=== PATIENT | female | born 1990 | race Caucasian/White ===

== ENCOUNTER → 2021-01-09 08:13 | Outpatient (CLI) | payer OTHER, SELFPAY ==
[2021-01-09 11:19] LABS: COVID19 -Nasal RAPID Negative (Negative)
== END ==
PROVIDERS: PCP Registered Nurse; Visit Provider Nurse Practitioner Family
DX: Z20.822 Contact with and (suspected) exposure to COVID-19 (principal); R09.89 Other specified symptoms and signs involving the circulatory and respiratory systems; R52 Pain, unspecified
CPT/HCPCS: 87635

== ENCOUNTER → 2021-05-08 09:04 | Outpatient (CLI) | payer OTHER, SELFPAY ==
--- NOTE | 2021-05-08 | DI.US.S_ITS ---
PROCEDURE: US OB >= 14 WEEKS FETUS INDICATIONS: COMPLETE ANATOMY SCANS OUTSIDE/PRIOR DATING DATA: Last menstrual period (LMP): 12/13/2020. LMP-based estimated date of delivery (GITA): 09/19/2021. First dating scan (date and location): 05/08/2021. Estimated date of delivery (GITA) from first dating scan: 09/18/2021. The calculations are made using the study generated GITA of 09/18/2021. TECHNIQUE: Real-time scanning was performed of the fetus, with image documentation and biometric measurements. Endovaginal scanning: Not indicated. COMPARISON: None. FINDINGS: General: A single living intrauterine gestation is present. Presentation: Vertex. Placenta: Placental position is posterior, without previa. Amniotic fluid index: 12.4 cm, normal range is 5-24 cm. Single deepest vertical pocket is 4 cm. heart rate: 157 beats per minute. Maternal cervical canal: 3.5 cm long. Normal lower limit is 2.5 cm. biometrics: Biparietal diameter: 5.0 cm, 21 weeks, 0 days. Head circumference: 18.6 cm, 21 weeks, 0 day. Abdominal circumference: 16.0 cm, 21 weeks, 1 day. Femur length: 3.4 cm, 20 weeks, 5 days Clinically estimated gestational age: Not applicable Composite gestational age from present scan: 21 weeks, 0 day. Estimated weight and percentile: 388 grams, 49 percent. Anatomic survey: Neuro: Ventricles are non-dilated at less than 10 mm. Cisterna magna is normal at 3-11 mm. Cerebellum is normal in size and morphology. Nuchal skin fold: Normal at less than 6 mm between 14-21 weeks gestational age. Face: Nose and lips, facial profile are normal. Spine: No evidence for spina bifida. Heart: 4-chambered heart is present, with normal ventricular outflow tracts. Diaphragm: Diaphragm is intact. Stomach: Left-sided stomach is present. Kidneys: No hydronephrosis. Normal is less than 5 mm in 2nd trimester, less than 7 mm in 3rd trimester. Cord: 3-vessel cord has orthotopic insertion. Bladder: Normal in size. Extremities: All 4 extremities identified. IMPRESSION: 1. Single live intrauterine with fetus in vertex presentation. heart rate is 157 beats per minute. Normal amount of amniotic fluid. Estimated weight is at 49th percentile. 2. Normal anatomic survey. We strive to produce accurate, complete, and clear reports of imaging services. To assist us in improving patient care, this report was composed using standard report templates and voice recognition software. Therefore, it may contain abnormal punctuation, insertions and/or omissions. Occasional wrong-word or sound-alike substitutions may occur. Though we review the report and make efforts to correct it, we do recommend that the report be read carefully in proper context to recognize any text inaccuracies. Dictated by: Juan Arredondo M.D. on 05/08/2021 at 10:48 Approved by: Juan Arredondo M.D. on 05/08/2021 at 11:12
== END ==
PROVIDERS: Referring Provider Nurse Practitioner Obstetrics & Gynecology; Visit Provider Nurse Practitioner Obstetrics & Gynecology
DX: Z34.92 Encounter for supervision of normal pregnancy, unspecified, second trimester (principal); Z3A.21 21 weeks gestation of pregnancy
CPT/HCPCS: 76811

== ENCOUNTER 2021-08-07 10:15 | Outpatient (RCR) | payer OTHER, SELFPAY ==
--- NOTE | 2021-05-24 09:43 | PT.OIE ---
Current Diagnoses Pain in right hip (05/24/21) Pelvic and perineal pain (05/24/21) Past Surgical History History of tonsillectomy Visit Care Team Role Provider Type Mihaela Montgomery CNM Attending Provider Advanced Data Power Consultant Family Provider Primary Care Provider Referring Provider Specialty: SOCIAL MEDIA ANALYST Address: [address] [place] [address], [address], [address] Email: [email or web address] Initial Evaluation PT-OP-A Visit Information Start: 05/24/21 08:56 Freq: Status: Active Protocol: Document 05/24/21 08:59 AMB (Rec: 05/24/21 09:52 AMB [id number]) Out-Patient Physical Therapy Visit Information Visit Information Visit Type Initial Evaluation Visit Start Time 09:00 Visit Stop Time 09:45 Total Visit Minutes 45 Visit Number 1 PT-OP-B Current Condition Start: 05/24/21 08:56 Freq: Status: Active Protocol: Document 05/24/21 08:59 AMB (Rec: 05/24/21 09:52 AMB [id number]) Current Condition History of Current Condition Onset Date 2 weeks Current Complaints R hip/groin pain History of Current Condition Celsa is due in September with her second baby, she noticed R sided hip and groin pain a couple of weeks ago. Any kind of weightbearing through the right leg hurts, getting out of bed hurts when puttin weight through the legs, not the rolling or sitting up. Weightbearing through the right leg hurts (like lifting the left leg up and weightbearing on the right leg ). Does tend to go on hikes with her 5 year old a lot, but doesn't remember a specific event where she fell or stepped wrong. Treatment Goals Patient/Caregiver Goals Take care of 5 year old without pain, go through without so much R groin pain Prior Functional Status Baseline Function- ADL's Independent Baseline Function- Mobility Independent Current Functional Impairments (Reported) Functional Limitations- ADL's Difficulty donning/doffing shoes, dressing, taking care of 5 year old, getting onto/ off of floor Personal Factors Other Personal Factors That May Effect - due in September with Therapy/Recovery second son PT-OP-C Subjective Start: 05/24/21 08:56 Freq: Status: Active Protocol: Document 05/24/21 09:00 AMB (Rec: 05/25/21 14:29 AMB [id number]) Patient Questionnaires Lower Extremity Functional Scale LEFS Score 73 LEFS Impairment 1 to 19% Impaired (Score 63-79 ) OP-PT Pain Assessment Comments Pain Comments 2-10 R groin/lateral hip PT-OP-F Manual Assessment Start: 05/24/21 08:56 Freq: Status: Active Protocol: Document 05/24/21 09:00 AMB (Rec: 05/28/21 09:42 AMB [id number]) Manual Assessments Soft Tissue Assessment Soft Tissue Mobility Assessment Tenderness over R adductor, iliopsoas and gluteals >L no real tenderness on L. Joint Mobility Assessment Joint Mobility Assessment No pain with palpation over pubic symphysis. R ASIS and medial malleolus appear long in supine. L LE distraction feels good, R is painful. PT-OP-K Range of Motion Start: 05/24/21 08:56 Freq: Status: Active Protocol: Document 05/24/21 09:00 AMB (Rec: 05/28/21 09:42 AMB [id number]) Lumbar Spine Range of Motion Lumbar Spine Active Percentage Comments overall hypermobile with full spinal flexion, extension, pt tends to push into pain to get a stretch PT-OP-L Special Tests Start: 05/24/21 08:56 Freq: Status: Active Protocol: Document 05/24/21 09:00 AMB (Rec: 05/28/21 09:42 AMB [id number]) Special Tests Hip Special Tests Scour Test Test Results + Comments painful on R with hip flexion and IR PT-OP-M Strength Start: 05/24/21 08:56 Freq: Status: Active Protocol: Document 05/24/21 09:00 AMB (Rec: 05/28/21 09:42 AMB [id number]) Hip Strength Hip Manual Muscle Testing Right Flexion (L2) 5 Normal Extension (S1) 5 Normal Abduction 4+ Good+ Left Flexion (L2) 5 Normal Extension (S1) 5 Normal Abduction 5 Normal PT-OP-Q Treatments Start: 05/24/21 08:56 Freq: Status: Active Protocol: Document 05/24/21 09:00 AMB (Rec: 05/28/21 09:42 AMB [id number]) Therapeutic Exercises Supine Exercises 1 Supine Exercise Name MET for R anterior rotation Reps/Minutes 5x3 Other Exercises 1 Other Exercise Name bird dog UE only Reps/Minutes 10 Comments contract TA and PF PT-OP-T Assessment and Plan Start: 05/24/21 08:56 Freq: Status: Active Protocol: Document 05/24/21 09:00 AMB (Rec: 05/28/21 09:42 AMB [id number]) Physical Therapy Assessment Rehab Potential Rehabilitation Potential Good Evaluation Complexity Number of Personal Factors/Comorbidities 1-2 Number of Body Systems Impaired 3 Clinical Presentation at Evaluation Stable Impairments Impairments Activity Tolerance,Functional Activities,Posture Goals Two Impairment HEP Short Term Goal (STG) Celsa will be consistent and independent with a HEP to stabilize her core. STG Duration 4 weeks One Impairment Gait Short Term Goal (STG) Celsa will walk over smooth surfaces for 15 minutes with R LE pain of 2/10 or less. STG Duration 4 weeks Rope Maker Goal (LTG) Celsa will hike for 30 minutes with R LE pain of 2/10 or less. LTG Duration 6 weeks Assessment Summary Assessment Celsa is a 30 old female who is with her second child and due in September. She attends physical therapy with a 2 week history of increasing right groin/hip/SI pain worst with weightbearing on the right leg. She has a tendency to push through this pain with stretching, even though she is quite hypermobile. Upon evaluation she was found to have SI dysfunction and poor ability to stabilize her core musculature. She was instructed to begin core stabilization and to pause on activities that load the SI unilaterally. She was instructed in body mechanics for more even weightbearing ( squatting instead of lunging, moving in and out of car with a sit to stand motion vs only loading one leg). She will benefit from further physical therapy to progress her core stabilization and provide manual therapy for her SI joint/groin musculature to reduce her pain so she can maintain her activity throughout her and continue to provide care for her young son. Physical Therapy Plan Frequency and Duration Frequency of Treatment 2x/Week Duration of Treatment 6 weeks Plan of Care Start Date 05/24/21 Plan of Care End Date 07/05/21 Therapeutic Interventions Therapeutic Interventions Aquatic Therapy,Home Exercise Program,Manual Therapy, Neuromuscular Re-education, Therapeutic Activities, Therapeutic Exercises Modalities Cold Pack/Ice Massage,Electric Stimulation,Hot Packs Next Visit Focus/Plan Next Note Type Treatment Note Next Visit Plan Follow up on HEP: R ant MET, bird dog
--- NOTE | 2021-05-24 09:43 | PT.OPPOC ---
Physical, Occupational & Speech Therapy At [facility] Current Diagnoses Pain in right hip (05/24/21) Pelvic and perineal pain (05/24/21) Visit Care Team Role Provider Type Mihaela Montgomery CNM Attending Provider Advanced Machine Helper Family Provider Primary Care Provider Referring Provider Specialty: RATE CLERK Address: [address] [place] [address], [place] [address], [place], [address] Email: [email or web address] Plan Of Care PT-OP-T Assessment and Plan Start: 05/24/21 08:56 Freq: Status: Active Protocol: Document 05/24/21 09:00 AMB (Rec: 05/28/21 09:42 AMB [id number]) Physical Therapy Assessment Rehab Potential Rehabilitation Potential Good Evaluation Complexity Number of Personal Factors/Comorbidities 1-2 Number of Body Systems Impaired 3 Clinical Presentation at Evaluation Stable Impairments Impairments Activity Tolerance,Functional Activities,Posture Goals Two Impairment HEP Short Term Goal (STG) Celsa will be consistent and independent with a HEP to stabilize her core. STG Duration 4 weeks One Impairment Gait Short Term Goal (STG) Celsa will walk over smooth surfaces for 15 minutes with R LE pain of 2/10 or less. STG Duration 4 weeks Intermediate Goal (LTG) Celsa will hike for 30 minutes with R LE pain of 2/10 or less. LTG Duration 6 weeks Assessment Summary Assessment Celsa is a 30 old female who is with her second child and due in September. She attends physical therapy with a 2 week history of increasing right groin/hip/SI pain worst with weightbearing on the right leg. She has a tendency to push through this pain with stretching, even though she is quite hypermobile. Upon evaluation she was found to have SI dysfunction and poor ability to stabilize her core musculature. She was instructed to begin core stabilization and to pause on activities that load the SI unilaterally. She was instructed in body mechanics for more even weightbearing ( squatting instead of lunging, moving in and out of car with a sit to stand motion vs only loading one leg). She will benefit from further physical therapy to progress her core stabilization and provide manual therapy for her SI joint/groin musculature to reduce her pain so she can maintain her activity throughout her and continue to provide care for her young son. Physical Therapy Plan Frequency and Duration Frequency of Treatment 2x/Week Duration of Treatment 6 weeks Plan of Care Start Date 05/24/21 Plan of Care End Date 07/05/21 Therapeutic Interventions Therapeutic Interventions Aquatic Therapy,Home Exercise Program,Manual Therapy, Neuromuscular Re-education, Therapeutic Activities, Therapeutic Exercises Modalities Cold Pack/Ice Massage,Electric Stimulation,Hot Packs Next Visit Focus/Plan Next Note Type Treatment Note Next Visit Plan Follow up on HEP: R ant MET, bird dog Plan of Care Dates Plan of Care Start Date 05/24/21 Plan of Care End Date 07/05/21 Electronically Signed by: Alize Hirsch, PT 05/28/21 0919 Please Sign and Return: I have reviewed this Plan of Care and certify that the skilled therapy services above are required to meet the patient?s needs. Physician Signature Date Printed Name and Credentials Clinical Instructor Signature Printed Name and Credentials
--- NOTE | 2021-05-29 12:40 | PT.OTN ---
Current Diagnoses Pain in right hip (05/29/21) Pelvic and perineal pain (05/29/21) Physical Therapy Treatment Note PT-OP-A Visit Information Start: 05/24/21 08:56 Freq: Status: Active Protocol: Document 05/29/21 08:15 AMB (Rec: 05/29/21 12:40 AMB [id number]) Out-Patient Physical Therapy Visit Information Visit Information Visit Type Treatment Note Visit Start Time 08:15 Visit Stop Time 09:00 Total Visit Minutes 45 Visit Number 2 PT-OP-B Current Condition Start: 05/24/21 08:56 Freq: Status: Active Protocol: Document 05/24/21 08:59 AMB (Rec: 05/24/21 09:52 AMB [id number]) Current Condition History of Current Condition Onset Date 2 weeks Current Complaints R hip/groin pain History of Current Condition Celsa is due in September with her second baby, she noticed R sided hip and groin pain a couple of weeks ago. Any kind of weightbearing through the right leg hurts, getting out of bed hurts when puttin weight through the legs, not the rolling or sitting up. Weightbearing through the right leg hurts (like lifting the left leg up and weightbearing on the right leg ). Does tend to go on hikes with her 5 year old a lot, but doesn't remember a specific event where she fell or stepped wrong. Treatment Goals Patient/Caregiver Goals Take care of 5 year old without pain, go through without so much R groin pain Prior Functional Status Baseline Function- ADL's Independent Baseline Function- Mobility Independent Current Functional Impairments (Reported) Functional Limitations- ADL's Difficulty donning/doffing shoes, dressing, taking care of 5 year old, getting onto/ off of floor Personal Factors Other Personal Factors That May Effect - due in September with Therapy/Recovery second son PT-OP-C Subjective Start: 05/24/21 08:56 Freq: Status: Active Protocol: Document 05/29/21 08:15 AMB (Rec: 05/29/21 12:40 AMB [id number]) OP-PT Subjective Patient Comments Patient Comments Celsa went on a couple of walks didn't really matter if they were short, long, hilly, or flat, the next day she woke up with pain. On days that she didn't walk she woke up and felt much better. PT-OP-F Manual Assessment Start: 05/24/21 08:56 Freq: Status: Active Protocol: Document 05/24/21 09:00 AMB (Rec: 05/28/21 09:42 AMB [id number]) Manual Assessments Soft Tissue Assessment Soft Tissue Mobility Assessment Tenderness over R adductor, iliopsoas and gluteals >L no real tenderness on L. Joint Mobility Assessment Joint Mobility Assessment No pain with palpation over pubic symphysis. R ASIS and medial malleolus appear long in supine. L LE distraction feels good, R is painful. PT-OP-K Range of Motion Start: 05/24/21 08:56 Freq: Status: Active Protocol: Document 05/24/21 09:00 AMB (Rec: 05/28/21 09:42 AMB [id number]) Lumbar Spine Range of Motion Lumbar Spine Active Percentage Comments overall hypermobile with full spinal flexion, extension, pt tends to push into pain to get a stretch PT-OP-L Special Tests Start: 05/24/21 08:56 Freq: Status: Active Protocol: Document 05/24/21 09:00 AMB (Rec: 05/28/21 09:42 AMB [id number]) Special Tests Hip Special Tests Scour Test Test Results + Comments painful on R with hip flexion and IR PT-OP-M Strength Start: 05/24/21 08:56 Freq: Status: Active Protocol: Document 05/24/21 09:00 AMB (Rec: 05/28/21 09:42 AMB [id number]) Hip Strength Hip Manual Muscle Testing Right Flexion (L2) 5 Normal Extension (S1) 5 Normal Abduction 4+ Good+ Left Flexion (L2) 5 Normal Extension (S1) 5 Normal Abduction 5 Normal PT-OP-Q Treatments Start: 05/24/21 08:56 Freq: Status: Active Protocol: Document 05/29/21 08:15 AMB (Rec: 05/29/21 12:40 AMB [id number]) Therapeutic Exercises Supine Exercises 1 Supine Exercise Name MET for R anterior rotation Reps/Minutes 5x3 Sidelying Exercises clamshell Sidelying Exercise Name cues not to rotate at lumbar spine Side bilateral Reps/Minutes 2x10 QL stretch Sidelying Exercise Name L Reps/Minutes 30x2 Standing Exercises active hamstring stretch Reps/Minutes 30x3 Other Exercises 1 Other Exercise Name bird dog UE only Reps/Minutes 10 Comments contract TA and PF Manual Therapy Treatment Soft Tissue Mobilization 1 Body Location L QL, R adductor Mobilization Type Myofascial Release Taping 1 Body Location SI-bilat Treatment Focus stabilization Type of Tape Kinesio Tape Comments star pattern PT-OP-T Assessment and Plan Start: 05/24/21 08:56 Freq: Status: Active Protocol: Document 05/29/21 08:15 AMB (Rec: 05/29/21 12:40 AMB [id number]) Physical Therapy Assessment Goals Two Impairment HEP Short Term Goal (STG) Celsa will be consistent and independent with a HEP to stabilize her core. STG Duration 4 weeks One Impairment Gait Short Term Goal (STG) Celsa will walk over smooth surfaces for 15 minutes with R LE pain of 2/10 or less. STG Duration 4 weeks Care Home Goal (LTG) Celsa will hike for 30 minutes with R LE pain of 2/10 or less. LTG Duration 6 weeks Assessment Summary Assessment Celsa tolerated exercises well . we tried an SI belt today which she felt helped but didn 't immediately take away her groin pain. Physical Therapy Plan Next Visit Focus/Plan Next Note Type Treatment Note Next Visit Plan Follow up on HEP: R ant MET, bird dog, added clamshell, QL stretch, standing hamstring stretch against wall
--- NOTE | 2021-06-02 14:48 | PT.OTN ---
Current Diagnoses Pain in right hip (06/02/21) Pelvic and perineal pain (06/02/21) Physical Therapy Treatment Note PT-OP-A Visit Information Start: 05/24/21 08:56 Freq: Status: Active Protocol: Document 06/02/21 08:15 AMB (Rec: 06/02/21 09:46 AMB [id number]) Out-Patient Physical Therapy Visit Information Visit Information Visit Type Treatment Note Visit Start Time 08:15 Visit Stop Time 09:00 Total Visit Minutes 45 Visit Number 3 PT-OP-B Current Condition Start: 05/24/21 08:56 Freq: Status: Active Protocol: Document 05/24/21 08:59 AMB (Rec: 05/24/21 09:52 AMB [id number]) Current Condition History of Current Condition Onset Date 2 weeks Current Complaints R hip/groin pain History of Current Condition Celsa is due in September with her second baby, she noticed R sided hip and groin pain a couple of weeks ago. Any kind of weightbearing through the right leg hurts, getting out of bed hurts when puttin weight through the legs, not the rolling or sitting up. Weightbearing through the right leg hurts (like lifting the left leg up and weightbearing on the right leg ). Does tend to go on hikes with her 5 year old a lot, but doesn't remember a specific event where she fell or stepped wrong. Treatment Goals Patient/Caregiver Goals Take care of 3 year old without pain, go through without so much R groin pain Prior Functional Status Baseline Function- ADL's Independent Baseline Function- Mobility Independent Current Functional Impairments (Reported) Functional Limitations- ADL's Difficulty donning/doffing shoes, dressing, taking care of 5 year old, getting onto/ off of floor Personal Factors Other Personal Factors That May Effect - due in September with Therapy/Recovery second son PT-OP-C Subjective Start: 05/24/21 08:56 Freq: Status: Active Protocol: Document 06/02/21 08:15 AMB (Rec: 06/02/21 09:46 AMB [id number]) OP-PT Subjective Patient Comments Patient Comments Pt was palpating last night and feels like the pain is right on the superior pubic ramus from her description PT-OP-F Manual Assessment Start: 05/24/21 08:56 Freq: Status: Active Protocol: Document 05/24/21 09:00 AMB (Rec: 05/28/21 09:42 AMB [id number]) Manual Assessments Soft Tissue Assessment Soft Tissue Mobility Assessment Tenderness over R adductor, iliopsoas and gluteals >L no real tenderness on L. Joint Mobility Assessment Joint Mobility Assessment No pain with palpation over pubic symphysis. R ASIS and medial malleolus appear long in supine. L LE distraction feels good, R is painful. PT-OP-K Range of Motion Start: 05/24/21 08:56 Freq: Status: Active Protocol: Document 05/24/21 09:00 AMB (Rec: 05/28/21 09:42 AMB [id number]) Lumbar Spine Range of Motion Lumbar Spine Active Percentage Comments overall hypermobile with full spinal flexion, extension, pt tends to push into pain to get a stretch PT-OP-L Special Tests Start: 05/24/21 08:56 Freq: Status: Active Protocol: Document 05/24/21 09:00 AMB (Rec: 05/28/21 09:42 AMB [id number]) Special Tests Hip Special Tests Scour Test Test Results + Comments painful on R with hip flexion and IR PT-OP-M Strength Start: 05/24/21 08:56 Freq: Status: Active Protocol: Document 05/24/21 09:00 AMB (Rec: 05/28/21 09:42 AMB [id number]) Hip Strength Hip Manual Muscle Testing Right Flexion (L2) 5 Normal Extension (S1) 5 Normal Abduction 4+ Good+ Left Flexion (L2) 5 Normal Extension (S1) 5 Normal Abduction 5 Normal PT-OP-Q Treatments Start: 05/24/21 08:56 Freq: Status: Active Protocol: Document 06/02/21 08:15 AMB (Rec: 06/02/21 14:48 AMB [id number]) Therapeutic Exercises Supine Exercises 1 Supine Exercise Name MET for R anterior rotation Reps/Minutes 5x3 Sidelying Exercises clamshell Sidelying Exercise Name cues not to rotate at lumbar spine Side bilateral Reps/Minutes 2x10 QL stretch Sidelying Exercise Name L Reps/Minutes 30x2 Sitting Exercises active adductor stretch Reps/Minutes 30x4 Manual Therapy Treatment Soft Tissue Mobilization 1 Body Location L QL, R adductor Mobilization Type Myofascial Release PT-OP-T Assessment and Plan Start: 05/24/21 08:56 Freq: Status: Active Protocol: Document 06/02/21 08:15 AMB (Rec: 06/02/21 14:48 AMB [id number]) Physical Therapy Assessment Goals Two Impairment HEP Short Term Goal (STG) Celsa will be consistent and independent with a HEP to stabilize her core. STG Duration 4 weeks One Impairment Gait Short Term Goal (STG) Celsa will walk over smooth surfaces for 15 minutes with R LE pain of 2/10 or less. STG Duration 4 weeks Business Continuity Planner Goal (LTG) Celsa will hike for 30 minutes with R LE pain of 2/10 or less. LTG Duration 6 weeks Assessment Summary Assessment Celsa was educated today on anatomy of pelvis, discussed need for inflammation reduction.Vended SI belt. Physical Therapy Plan Next Visit Focus/Plan Next Note Type Treatment Note Next Visit Plan Work on adductors
--- NOTE | 2021-06-06 16:02 | PT.OTN ---
Current Diagnoses Pain in right hip (06/06/21) Pelvic and perineal pain (06/06/21) Physical Therapy Treatment Note PT-OP-A Visit Information Start: 05/24/21 08:56 Freq: Status: Active Protocol: Document 06/06/21 08:18 AMB (Rec: 06/06/21 09:03 AMB [id number]) Out-Patient Physical Therapy Visit Information Visit Information Visit Type Treatment Note Visit Start Time 08:15 Visit Stop Time 09:00 Total Visit Minutes 45 Visit Number 4 PT-OP-B Current Condition Start: 05/24/21 08:56 Freq: Status: Active Protocol: Document 05/24/21 08:59 AMB (Rec: 05/24/21 09:52 AMB [id number]) Current Condition History of Current Condition Onset Date 2 weeks Current Complaints R hip/groin pain History of Current Condition Celsa is due in September with her second baby, she noticed R sided hip and groin pain a couple of weeks ago. Any kind of weightbearing through the right leg hurts, getting out of bed hurts when puttin weight through the legs, not the rolling or sitting up. Weightbearing through the right leg hurts (like lifting the left leg up and weightbearing on the right leg ). Does tend to go on hikes with her 5 year old a lot, but doesn't remember a specific event where she fell or stepped wrong. Treatment Goals Patient/Caregiver Goals Take care of 5 year old without pain, go through without so much R groin pain Prior Functional Status Baseline Function- ADL's Independent Baseline Function- Mobility Independent Current Functional Impairments (Reported) Functional Limitations- ADL's Difficulty donning/doffing shoes, dressing, taking care of 5 year old, getting onto/ off of floor Personal Factors Other Personal Factors That May Effect - due in September with Therapy/Recovery second son PT-OP-C Subjective Start: 05/24/21 08:56 Freq: Status: Active Protocol: Document 06/06/21 08:15 AMB (Rec: 06/07/21 16:02 AMB [id number]) OP-PT Subjective Patient Comments Patient Comments Celsa went to the pool, but was sort of wondering what exercises to do. The pool is definitely less painful than walking. But she can still feel it a bit. She did have a couple of nights where it wasn't as bad as usual. PT-OP-F Manual Assessment Start: 05/24/21 08:56 Freq: Status: Active Protocol: Document 05/24/21 09:00 AMB (Rec: 05/28/21 09:42 AMB [id number]) Manual Assessments Soft Tissue Assessment Soft Tissue Mobility Assessment Tenderness over R adductor, iliopsoas and gluteals >L no real tenderness on L. Joint Mobility Assessment Joint Mobility Assessment No pain with palpation over pubic symphysis. R ASIS and medial malleolus appear long in supine. L LE distraction feels good, R is painful. PT-OP-K Range of Motion Start: 05/24/21 08:56 Freq: Status: Active Protocol: Document 05/24/21 09:00 AMB (Rec: 05/28/21 09:42 AMB [id number]) Lumbar Spine Range of Motion Lumbar Spine Active Percentage Comments overall hypermobile with full spinal flexion, extension, pt tends to push into pain to get a stretch PT-OP-L Special Tests Start: 05/24/21 08:56 Freq: Status: Active Protocol: Document 05/24/21 09:00 AMB (Rec: 05/28/21 09:42 AMB [id number]) Special Tests Hip Special Tests Scour Test Test Results + Comments painful on R with hip flexion and IR PT-OP-M Strength Start: 05/24/21 08:56 Freq: Status: Active Protocol: Document 05/24/21 09:00 AMB (Rec: 05/28/21 09:42 AMB [id number]) Hip Strength Hip Manual Muscle Testing Right Flexion (L2) 5 Normal Extension (S1) 5 Normal Abduction 4+ Good+ Left Flexion (L2) 5 Normal Extension (S1) 5 Normal Abduction 5 Normal PT-OP-Q Treatments Start: 05/24/21 08:56 Freq: Status: Active Protocol: Document 06/06/21 08:15 AMB (Rec: 06/07/21 16:02 AMB [id number]) Therapeutic Exercises Sidelying Exercises clamshell Sidelying Exercise Name cues not to rotate at lumbar spine Side bilateral Reps/Minutes 2x10 QL stretch Sidelying Exercise Name L Reps/Minutes 30x2 Sitting Exercises roll out Resistance #3 t band Equipment Used 10 roll in Reps/Minutes 10 Comments cued TA/pelvic floor Manual Therapy Treatment Soft Tissue Mobilization 1 Body Location L QL, R adductor Mobilization Type Myofascial Release PT-OP-T Assessment and Plan Start: 05/24/21 08:56 Freq: Status: Active Protocol: Document 06/06/21 08:15 AMB (Rec: 06/07/21 16:02 AMB [id number]) Physical Therapy Assessment Goals Two Impairment HEP Short Term Goal (STG) Celsa will be consistent and independent with a HEP to stabilize her core. STG Duration 4 weeks One Impairment Gait Short Term Goal (STG) Celsa will walk over smooth surfaces for 15 minutes with R LE pain of 2/10 or less. STG Duration 4 weeks Cataract Lens Generator Goal (LTG) Celsa will hike for 30 minutes with R LE pain of 2/10 or less. LTG Duration 6 weeks Assessment Summary Assessment Continued to educate on appropriate exercise, did ok with roll in exercise, but continues to have pain with weightbearing Physical Therapy Plan Next Visit Focus/Plan Next Note Type Treatment Note Next Visit Plan Reassess pubic symphsys/SI
--- NOTE | 2021-06-09 12:42 | PT.OTN ---
Current Diagnoses Pain in right hip (06/09/21) Pelvic and perineal pain (06/09/21) Physical Therapy Treatment Note PT-OP-A Visit Information Start: 05/24/21 08:56 Freq: Status: Active Protocol: Document 06/09/21 08:15 AMB (Rec: 06/09/21 12:42 AMB [id number]) Out-Patient Physical Therapy Visit Information Visit Information Visit Type Treatment Note Visit Start Time 08:15 Visit Stop Time 09:00 Total Visit Minutes 45 Visit Number 5 PT-OP-B Current Condition Start: 05/24/21 08:56 Freq: Status: Active Protocol: Document 05/24/21 08:59 AMB (Rec: 05/24/21 09:52 AMB [id number]) Current Condition History of Current Condition Onset Date 2 weeks Current Complaints R hip/groin pain History of Current Condition Celsa is due in September with her second baby, she noticed R sided hip and groin pain a couple of weeks ago. Any kind of weightbearing through the right leg hurts, getting out of bed hurts when puttin weight through the legs, not the rolling or sitting up. Weightbearing through the right leg hurts (like lifting the left leg up and weightbearing on the right leg ). Does tend to go on hikes with her 5 year old a lot, but doesn't remember a specific event where she fell or stepped wrong. Treatment Goals Patient/Caregiver Goals Take care of 3 year old without pain, go through without so much R groin pain Prior Functional Status Baseline Function- ADL's Independent Baseline Function- Mobility Independent Current Functional Impairments (Reported) Functional Limitations- ADL's Difficulty donning/doffing shoes, dressing, taking care of 5 year old, getting onto/ off of floor Personal Factors Other Personal Factors That May Effect - due in September with Therapy/Recovery second son PT-OP-C Subjective Start: 05/24/21 08:56 Freq: Status: Active Protocol: Document 06/09/21 08:15 AMB (Rec: 06/09/21 12:42 AMB [id number]) OP-PT Subjective Patient Comments Patient Comments Celsa is concerned about pain with rolling over and moving from sit to stand. She is sore today from gardening yesterday. PT-OP-F Manual Assessment Start: 05/24/21 08:56 Freq: Status: Active Protocol: Document 05/24/21 09:00 AMB (Rec: 05/28/21 09:42 AMB [id number]) Manual Assessments Soft Tissue Assessment Soft Tissue Mobility Assessment Tenderness over R adductor, iliopsoas and gluteals >L no real tenderness on L. Joint Mobility Assessment Joint Mobility Assessment No pain with palpation over pubic symphysis. R ASIS and medial malleolus appear long in supine. L LE distraction feels good, R is painful. PT-OP-K Range of Motion Start: 05/24/21 08:56 Freq: Status: Active Protocol: Document 05/24/21 09:00 AMB (Rec: 05/28/21 09:42 AMB [id number]) Lumbar Spine Range of Motion Lumbar Spine Active Percentage Comments overall hypermobile with full spinal flexion, extension, pt tends to push into pain to get a stretch PT-OP-L Special Tests Start: 05/24/21 08:56 Freq: Status: Active Protocol: Document 05/24/21 09:00 AMB (Rec: 05/28/21 09:42 AMB [id number]) Special Tests Hip Special Tests Scour Test Test Results + Comments painful on R with hip flexion and IR PT-OP-M Strength Start: 05/24/21 08:56 Freq: Status: Active Protocol: Document 05/24/21 09:00 AMB (Rec: 05/28/21 09:42 AMB [id number]) Hip Strength Hip Manual Muscle Testing Right Flexion (L2) 5 Normal Extension (S1) 5 Normal Abduction 4+ Good+ Left Flexion (L2) 5 Normal Extension (S1) 5 Normal Abduction 5 Normal PT-OP-Q Treatments Start: 05/24/21 08:56 Freq: Status: Active Protocol: Document 06/09/21 08:15 AMB (Rec: 06/09/21 12:42 AMB [id number]) Therapeutic Exercises Supine Exercises 3 Supine Exercise Name hamstring/adductor stretch Reps/Minutes 30x2 2 Supine Exercise Name bridge Comments the bridge and roll from R to L side Manual Therapy Treatment Soft Tissue Mobilization 1 Body Location L QL, R adductor Mobilization Type Myofascial Release Joint Mobilizations 1 Joint MET for pubic symphsysis Reps/Duration x3 Manual Traction long axis Comments left PT-OP-T Assessment and Plan Start: 05/24/21 08:56 Freq: Status: Active Protocol: Document 06/09/21 08:15 AMB (Rec: 06/09/21 12:42 AMB [id number]) Physical Therapy Assessment Goals Two Impairment HEP Short Term Goal (STG) Celsa will be consistent and independent with a HEP to stabilize her core. STG Duration 4 weeks One Impairment Gait Short Term Goal (STG) Celsa will walk over smooth surfaces for 15 minutes with R LE pain of 2/10 or less. STG Duration 4 weeks Complaint Coordinator Goal (LTG) Celsa will hike for 30 minutes with R LE pain of 2/10 or less. LTG Duration 6 weeks Assessment Summary Assessment Celsa had decreased pain with mini bridge instead of roll, cues to engage core and log roll were not enough to decrease pain. Physical Therapy Plan Next Visit Focus/Plan Next Visit Plan REcheck rolling with mini bridge, recheck SI/pubic symphysis alignment
--- NOTE | 2021-06-12 13:15 | PT.OTN ---
Current Diagnoses Pain in right hip (06/12/21) Pelvic and perineal pain (06/12/21) Physical Therapy Treatment Note PT-OP-A Visit Information Start: 05/24/21 08:56 Freq: Status: Active Protocol: Document 06/12/21 07:30 AMB (Rec: 06/12/21 08:23 AMB [id number]) Out-Patient Physical Therapy Visit Information Visit Information Visit Type Treatment Note Visit Start Time 07:30 Visit Stop Time 08:15 Total Visit Minutes 45 Visit Number 6 PT-OP-B Current Condition Start: 05/24/21 08:56 Freq: Status: Active Protocol: Document 05/24/21 08:59 AMB (Rec: 05/24/21 09:52 AMB [id number]) Current Condition History of Current Condition Onset Date 2 weeks Current Complaints R hip/groin pain History of Current Condition Celsa is due in September with her second baby, she noticed R sided hip and groin pain a couple of weeks ago. Any kind of weightbearing through the right leg hurts, getting out of bed hurts when puttin weight through the legs, not the rolling or sitting up. Weightbearing through the right leg hurts (like lifting the left leg up and weightbearing on the right leg ). Does tend to go on hikes with her 5 year old a lot, but doesn't remember a specific event where she fell or stepped wrong. Treatment Goals Patient/Caregiver Goals Take care of 3 year old without pain, go through without so much R groin pain Prior Functional Status Baseline Function- ADL's Independent Baseline Function- Mobility Independent Current Functional Impairments (Reported) Functional Limitations- ADL's Difficulty donning/doffing shoes, dressing, taking care of 3 year old, getting onto/ off of floor Personal Factors Other Personal Factors That May Effect - due in September with Therapy/Recovery second son PT-OP-C Subjective Start: 05/24/21 08:56 Freq: Status: Active Protocol: Document 06/12/21 07:30 AMB (Rec: 06/12/21 08:23 AMB [id number]) OP-PT Subjective Patient Comments Patient Comments Celsa gardened this weekend and is feeling it today. PT-OP-F Manual Assessment Start: 05/24/21 08:56 Freq: Status: Active Protocol: Document 05/24/21 09:00 AMB (Rec: 05/28/21 09:42 AMB [id number]) Manual Assessments Soft Tissue Assessment Soft Tissue Mobility Assessment Tenderness over R adductor, iliopsoas and gluteals >L no real tenderness on L. Joint Mobility Assessment Joint Mobility Assessment No pain with palpation over pubic symphysis. R ASIS and medial malleolus appear long in supine. L LE distraction feels good, R is painful. PT-OP-K Range of Motion Start: 05/24/21 08:56 Freq: Status: Active Protocol: Document 05/24/21 09:00 AMB (Rec: 05/28/21 09:42 AMB [id number]) Lumbar Spine Range of Motion Lumbar Spine Active Percentage Comments overall hypermobile with full spinal flexion, extension, pt tends to push into pain to get a stretch PT-OP-L Special Tests Start: 05/24/21 08:56 Freq: Status: Active Protocol: Document 05/24/21 09:00 AMB (Rec: 05/28/21 09:42 AMB [id number]) Special Tests Hip Special Tests Scour Test Test Results + Comments painful on R with hip flexion and IR PT-OP-M Strength Start: 05/24/21 08:56 Freq: Status: Active Protocol: Document 05/24/21 09:00 AMB (Rec: 05/28/21 09:42 AMB [id number]) Hip Strength Hip Manual Muscle Testing Right Flexion (L2) 5 Normal Extension (S1) 5 Normal Abduction 4+ Good+ Left Flexion (L2) 5 Normal Extension (S1) 5 Normal Abduction 5 Normal PT-OP-Q Treatments Start: 05/24/21 08:56 Freq: Status: Active Protocol: Document 06/12/21 12:58 AMB (Rec: 06/12/21 13:15 AMB [id number]) Therapeutic Activity Therapeutic Activity 1 Name Gardening body mechanics Reps/Minutes 25 min Comments Floor transfer- thigh walking up from quadruped, active hamstring stretch forward. Manual Therapy Treatment Soft Tissue Mobilization 1 Body Location L QL, R adductor Mobilization Type Myofascial Release Manual Traction long axis Comments left PT-OP-T Assessment and Plan Start: 05/24/21 08:56 Freq: Status: Active Protocol: Document 06/12/21 12:58 AMB (Rec: 06/12/21 13:15 AMB [id number]) Physical Therapy Assessment Goals Two Impairment HEP Short Term Goal (STG) Celsa will be consistent and independent with a HEP to stabilize her core. STG Duration 4 weeks One Impairment Gait Short Term Goal (STG) Celsa will walk over smooth surfaces for 15 minutes with R LE pain of 2/10 or less. STG Duration 4 weeks Real Estate Analyst Goal (LTG) Celsa will hike for 30 minutes with R LE pain of 2/10 or less. LTG Duration 6 weeks Assessment Summary Assessment Celsa did well with modifying her gardening body mechanics to decrease her pain. She was discussing a clicking in her hip Physical Therapy Plan Next Visit Focus/Plan Next Note Type Treatment Note
--- NOTE | 2021-06-14 14:30 | PT.OTN ---
Current Diagnoses Pain in right hip (06/14/21) Pelvic and perineal pain (06/14/21) Physical Therapy Treatment Note PT-OP-A Visit Information Start: 05/24/21 08:56 Freq: Status: Active Protocol: Document 06/14/21 14:23 SAK (Rec: 06/14/21 14:30 SAK [id number]) Out-Patient Physical Therapy Visit Information Visit Information Visit Type Treatment Note Visit Start Time 12:30 Visit Stop Time 13:16 Total Visit Minutes 46 Visit Number 7 Precautions Precautions PT-OP-B Current Condition Start: 05/24/21 08:56 Freq: Status: Active Protocol: Document 05/24/21 08:59 AMB (Rec: 05/24/21 09:52 AMB [id number]) Current Condition History of Current Condition Onset Date 2 weeks Current Complaints R hip/groin pain History of Current Condition Celsa is due in September with her second baby, she noticed R sided hip and groin pain a couple of weeks ago. Any kind of weightbearing through the right leg hurts, getting out of bed hurts when puttin weight through the legs, not the rolling or sitting up. Weightbearing through the right leg hurts (like lifting the left leg up and weightbearing on the right leg ). Does tend to go on hikes with her 5 year old a lot, but doesn't remember a specific event where she fell or stepped wrong. Treatment Goals Patient/Caregiver Goals Take care of 3 year old without pain, go through without so much R groin pain Prior Functional Status Baseline Function- ADL's Independent Baseline Function- Mobility Independent Current Functional Impairments (Reported) Functional Limitations- ADL's Difficulty donning/doffing shoes, dressing, taking care of 5 year old, getting onto/ off of floor Personal Factors Other Personal Factors That May Effect - due in September with Therapy/Recovery second son PT-OP-C Subjective Start: 05/24/21 08:56 Freq: Status: Active Protocol: Document 06/14/21 14:23 SAK (Rec: 06/14/21 14:30 SAK [id number]) OP-PT Subjective Patient Comments Patient Comments No new c/o. Patient reports very comfortable in the water. Has been going to the pool doing primarily flutter kicking, not sure what else to do in the pool. PT-OP-F Manual Assessment Start: 05/24/21 08:56 Freq: Status: Active Protocol: Document 05/24/21 09:00 AMB (Rec: 05/28/21 09:42 AMB [id number]) Manual Assessments Soft Tissue Assessment Soft Tissue Mobility Assessment Tenderness over R adductor, iliopsoas and gluteals >L no real tenderness on L. Joint Mobility Assessment Joint Mobility Assessment No pain with palpation over pubic symphysis. R ASIS and medial malleolus appear long in supine. L LE distraction feels good, R is painful. PT-OP-K Range of Motion Start: 05/24/21 08:56 Freq: Status: Active Protocol: Document 05/24/21 09:00 AMB (Rec: 05/28/21 09:42 AMB [id number]) Lumbar Spine Range of Motion Lumbar Spine Active Percentage Comments overall hypermobile with full spinal flexion, extension, pt tends to push into pain to get a stretch PT-OP-L Special Tests Start: 05/24/21 08:56 Freq: Status: Active Protocol: Document 05/24/21 09:00 AMB (Rec: 05/28/21 09:42 AMB [id number]) Special Tests Hip Special Tests Scour Test Test Results + Comments painful on R with hip flexion and IR PT-OP-M Strength Start: 05/24/21 08:56 Freq: Status: Active Protocol: Document 05/24/21 09:00 AMB (Rec: 05/28/21 09:42 AMB [id number]) Hip Strength Hip Manual Muscle Testing Right Flexion (L2) 5 Normal Extension (S1) 5 Normal Abduction 4+ Good+ Left Flexion (L2) 5 Normal Extension (S1) 5 Normal Abduction 5 Normal PT-OP-Q Treatments Start: 05/24/21 08:56 Freq: Status: Active Protocol: Document 06/12/21 12:58 AMB (Rec: 06/12/21 13:15 AMB [id number]) Therapeutic Activity Therapeutic Activity 1 Name Gardening body mechanics Reps/Minutes 25 min Comments Floor transfer- thigh walking up from quadruped, active hamstring stretch forward. Manual Therapy Treatment Soft Tissue Mobilization 1 Body Location L QL, R adductor Mobilization Type Myofascial Release Manual Traction long axis Comments left PT-OP-S Aquatic Treatment Start: 05/24/21 08:56 Freq: Status: Active Protocol: Document 06/14/21 14:23 SAK (Rec: 06/14/21 14:30 [facility] [id number]) Aquatics Treatment Pool Entry/Exit Pool Entry/Exit Method Stairs Assistance Independent Water Walking Sideways Comments cues for posture and core activation Backwards Water Level Chest Level Comments UE's for drag,cues for posture and core activation forward Water Level Chest Level Level of Assistance Verbal Cues Comments UE's for drag, cues for posture and core activation Lower Extremity Exercises hip flex/ext, ab/ad, circles Body Position Standing Water Level Chest Level Reps/Duration 10x ea Comments cues for posture and core activation Lower Extremity Stretches HS Body Position Standing Water Level Chest Level Equipment Small Noodle Reps/Duration 10x ea Spinal Exercises wall squat core stab Body Position Sitting Water Level Neck Level Reps/Duration 10x ea Comments sukhdeep and unil hor ab/ad, flex/ ext, WBOS, NBOS Balance SLS Reps/Duration 2xea Cavendish Activities Cavendish Activities Bicycle,Bicycle Backwards, Cross [place],Running Equipment small noodle Duration 15 min Comments abdominal cramping with backward bicycle Aquatic Yoga Aquatic Yoga Tree Pose Duration (Minutes) 1 PT-OP-T Assessment and Plan Start: 05/24/21 08:56 Freq: Status: Active Protocol: Document 06/14/21 14:23 [facility] (Rec: 06/14/21 14:30 [facility] [id number]) Physical Therapy Assessment Assessment Summary Assessment Good tolerance for aquatic therapy, responds well to cues for postural correction and core activation. Did experience some abdominal cramping with backward bicycling (pressure on noodle activates abdominals). Denied increase in pain with any exercises in pool. Feel aquatic therapy will be very helpful for patient as she moves through her . Physical Therapy Plan Frequency and Duration Frequency of Treatment 2x/Week Duration of Treatment 6 weeks Plan of Care Start Date 05/24/21 Plan of Care End Date 07/05/21 Therapeutic Interventions Therapeutic Interventions Aquatic Therapy,Home Exercise Program,Manual Therapy, Neuromuscular Re-education, Therapeutic Activities, Therapeutic Exercises Modalities Cold Pack/Ice Massage,Electric Stimulation,Hot Packs Next Visit Focus/Plan Next Note Type Treatment Note Next Visit Plan assess response to today's PT treatment with aquatic therapy , add deep water stabilization as tolerated. Issue written aquatic exercise handouts.
--- NOTE | 2021-06-21 08:15 | PT.OTN ---
Current Diagnoses Pain in right hip (06/21/21) Pelvic and perineal pain (06/21/21) Physical Therapy Treatment Note PT-OP-A Visit Information Start: 05/24/21 08:56 Freq: Status: Active Protocol: Document 06/21/21 12:30 SAK (Rec: 06/21/21 16:39 SAK [id number]) Out-Patient Physical Therapy Visit Information Visit Information Visit Type Treatment Note Visit Start Time 12:30 Visit Stop Time 13:16 Total Visit Minutes 46 Visit Number 7 Precautions Precautions PT-OP-B Current Condition Start: 05/24/21 08:56 Freq: Status: Active Protocol: Document 05/24/21 08:59 AMB (Rec: 05/24/21 09:52 AMB [id number]) Current Condition History of Current Condition Onset Date 2 weeks Current Complaints R hip/groin pain History of Current Condition Celsa is due in September with her second baby, she noticed R sided hip and groin pain a couple of weeks ago. Any kind of weightbearing through the right leg hurts, getting out of bed hurts when puttin weight through the legs, not the rolling or sitting up. Weightbearing through the right leg hurts (like lifting the left leg up and weightbearing on the right leg ). Does tend to go on hikes with her 5 year old a lot, but doesn't remember a specific event where she fell or stepped wrong. Treatment Goals Patient/Caregiver Goals Take care of 5 year old without pain, go through without so much R groin pain Prior Functional Status Baseline Function- ADL's Independent Baseline Function- Mobility Independent Current Functional Impairments (Reported) Functional Limitations- ADL's Difficulty donning/doffing shoes, dressing, taking care of 5 year old, getting onto/ off of floor Personal Factors Other Personal Factors That May Effect - due in September with Therapy/Recovery second son PT-OP-C Subjective Start: 05/24/21 08:56 Freq: Status: Active Protocol: Document 06/22/21 08:08 SAK (Rec: 06/22/21 08:15 SAK [id number]) OP-PT Subjective Patient Comments Patient Comments Patient reports she has been coming to the pool with her family a few days per week, has done some of the exercises done in aquatic PT but can't remember all. Her body feels the best when she is in the pool and likes being able to challenge her core. PT-OP-F Manual Assessment Start: 05/24/21 08:56 Freq: Status: Active Protocol: Document 05/24/21 09:00 AMB (Rec: 05/28/21 09:42 AMB [id number]) Manual Assessments Soft Tissue Assessment Soft Tissue Mobility Assessment Tenderness over R adductor, iliopsoas and gluteals >L no real tenderness on L. Joint Mobility Assessment Joint Mobility Assessment No pain with palpation over pubic symphysis. R ASIS and medial malleolus appear long in supine. L LE distraction feels good, R is painful. PT-OP-K Range of Motion Start: 05/24/21 08:56 Freq: Status: Active Protocol: Document 05/24/21 09:00 AMB (Rec: 05/28/21 09:42 AMB [id number]) Lumbar Spine Range of Motion Lumbar Spine Active Percentage Comments overall hypermobile with full spinal flexion, extension, pt tends to push into pain to get a stretch PT-OP-L Special Tests Start: 05/24/21 08:56 Freq: Status: Active Protocol: Document 05/24/21 09:00 AMB (Rec: 05/28/21 09:42 AMB [id number]) Special Tests Hip Special Tests Scour Test Test Results + Comments painful on R with hip flexion and IR PT-OP-M Strength Start: 05/24/21 08:56 Freq: Status: Active Protocol: Document 05/24/21 09:00 AMB (Rec: 05/28/21 09:42 AMB [id number]) Hip Strength Hip Manual Muscle Testing Right Flexion (L2) 5 Normal Extension (S1) 5 Normal Abduction 4+ Good+ Left Flexion (L2) 5 Normal Extension (S1) 5 Normal Abduction 5 Normal PT-OP-Q Treatments Start: 05/24/21 08:56 Freq: Status: Active Protocol: Document 06/12/21 12:58 AMB (Rec: 06/12/21 13:15 AMB [id number]) Therapeutic Activity Therapeutic Activity 1 Name Gardening body mechanics Reps/Minutes 25 min Comments Floor transfer- thigh walking up from quadruped, active hamstring stretch forward. Manual Therapy Treatment Soft Tissue Mobilization 1 Body Location L QL, R adductor Mobilization Type Myofascial Release Manual Traction long axis Comments left PT-OP-S Aquatic Treatment Start: 05/24/21 08:56 Freq: Status: Active Protocol: Document 06/22/21 08:08 [facility] (Rec: 06/22/21 08:15 SAK [id number]) Aquatics Treatment Pool Entry/Exit Pool Entry/Exit Method Stairs Assistance Independent Water Walking [place] June Water Level Chest Level Walking Equipment UE paddles Level of Assistance Verbal Cues Comments UE's and paddles for drag june Water Level Chest Level Walking Equipment UE paddles Level of Assistance Verbal Cues Comments UE's and paddles for drag Sideways Walking Equipment UE paddles Comments cues for posture and core activation, small motion Backwards Water Level Chest Level Walking Equipment UE paddles Comments UE's and paddles for drag,cues for posture and core activation forward Water Level Chest Level Walking Equipment UE paddles Level of Assistance Verbal Cues Comments UE's and paddles for drag, cues for posture and core activation Lower Extremity Exercises hip flex/ext, ab/ad, circles Body Position Standing Water Level Chest Level Reps/Duration 10x ea Comments cues for posture and core activation, modify intensity and ROM to tolerance Lower Extremity Stretches HS Body Position Standing Water Level Chest Level Equipment Small Noodle Reps/Duration 10x ea Spinal Exercises deep water DLS Body Position Standing Water Level [place] Reps/Duration 6 min Comments small barbells: sukhdeep and unil pull downs, pendulum wall squat core stab Body Position Sitting Water Level Neck Level Equipment UE paddles Reps/Duration 10x ea Comments sukhdeep and unil hor ab/ad, flex/ ext, WBOS, NBOS [place] Activities [place] Activities Bicycle,Bicycle Backwards, Cross Country,Running Equipment flotation belt on chest Duration 15 min Comments able to do backward bicycling PT-OP-T Assessment and Plan Start: 05/24/21 08:56 Freq: Status: Active Protocol: Document 06/21/21 12:30 SAK (Rec: 06/21/21 16:39 SAK [id number]) Physical Therapy Assessment Assessment Summary Assessment Patient has been coming to the pool consistently with her family, demonstrated good understanding of progression of exercises today with modifications of speed and intensity of movement to stay in pain-free range. Will be going to [place] for 10 days and plans to be in a pool daily so requests written aquatic ex program so she can perform current exercises while there. Physical Therapy Plan Frequency and Duration Frequency of Treatment 2x/Week Duration of Treatment 6 weeks Plan of Care Start Date 05/24/21 Plan of Care End Date 07/05/21 Therapeutic Interventions Therapeutic Interventions Aquatic Therapy,Home Exercise Program,Manual Therapy, Neuromuscular Re-education, Therapeutic Activities, Therapeutic Exercises Modalities Cold Pack/Ice Massage,Electric Stimulation,Hot Packs Next Visit Focus/Plan Next Note Type Treatment Note Next Visit Plan Issue written aquatic exercise handouts. Progress aquatic exercises as tolerated if able to schedule further aquatic PT session. Continue PT per POC.
--- NOTE | 2021-06-23 13:02 | PT.OTN ---
Current Diagnoses Pain in right hip (06/23/21) Pelvic and perineal pain (06/23/21) Physical Therapy Treatment Note PT-OP-A Visit Information Start: 05/24/21 08:56 Freq: Status: Active Protocol: Document 06/23/21 07:33 AMB (Rec: 06/23/21 08:16 AMB [id number]) Out-Patient Physical Therapy Visit Information Visit Information Visit Type Treatment Note Visit Start Time 07:30 Visit Stop Time 08:15 Total Visit Minutes 45 Visit Number 9 PT-OP-B Current Condition Start: 05/24/21 08:56 Freq: Status: Active Protocol: Document 05/24/21 08:59 AMB (Rec: 05/24/21 09:52 AMB [id number]) Current Condition History of Current Condition Onset Date 2 weeks Current Complaints R hip/groin pain History of Current Condition Celsa is due in September with her second baby, she noticed R sided hip and groin pain a couple of weeks ago. Any kind of weightbearing through the right leg hurts, getting out of bed hurts when puttin weight through the legs, not the rolling or sitting up. Weightbearing through the right leg hurts (like lifting the left leg up and weightbearing on the right leg ). Does tend to go on hikes with her 5 year old a lot, but doesn't remember a specific event where she fell or stepped wrong. Treatment Goals Patient/Caregiver Goals Take care of 3 year old without pain, go through without so much R groin pain Prior Functional Status Baseline Function- ADL's Independent Baseline Function- Mobility Independent Current Functional Impairments (Reported) Functional Limitations- ADL's Difficulty donning/doffing shoes, dressing, taking care of 5 year old, getting onto/ off of floor Personal Factors Other Personal Factors That May Effect - due in September with Therapy/Recovery second son PT-OP-C Subjective Start: 05/24/21 08:56 Freq: Status: Active Protocol: Document 06/23/21 07:33 AMB (Rec: 06/23/21 08:16 AMB [id number]) OP-PT Subjective Patient Comments Patient Comments Pt reports overall feeling better, but pain continues to come and go. PT-OP-F Manual Assessment Start: 05/24/21 08:56 Freq: Status: Active Protocol: Document 05/24/21 09:00 AMB (Rec: 05/28/21 09:42 AMB [id number]) Manual Assessments Soft Tissue Assessment Soft Tissue Mobility Assessment Tenderness over R adductor, iliopsoas and gluteals >L no real tenderness on L. Joint Mobility Assessment Joint Mobility Assessment No pain with palpation over pubic symphysis. R ASIS and medial malleolus appear long in supine. L LE distraction feels good, R is painful. PT-OP-K Range of Motion Start: 05/24/21 08:56 Freq: Status: Active Protocol: Document 05/24/21 09:00 AMB (Rec: 05/28/21 09:42 AMB [id number]) Lumbar Spine Range of Motion Lumbar Spine Active Percentage Comments overall hypermobile with full spinal flexion, extension, pt tends to push into pain to get a stretch PT-OP-L Special Tests Start: 05/24/21 08:56 Freq: Status: Active Protocol: Document 05/24/21 09:00 AMB (Rec: 05/28/21 09:42 AMB [id number]) Special Tests Hip Special Tests Scour Test Test Results + Comments painful on R with hip flexion and IR PT-OP-M Strength Start: 05/24/21 08:56 Freq: Status: Active Protocol: Document 05/24/21 09:00 AMB (Rec: 05/28/21 09:42 AMB [id number]) Hip Strength Hip Manual Muscle Testing Right Flexion (L2) 5 Normal Extension (S1) 5 Normal Abduction 4+ Good+ Left Flexion (L2) 5 Normal Extension (S1) 5 Normal Abduction 5 Normal PT-OP-Q Treatments Start: 05/24/21 08:56 Freq: Status: Active Protocol: Document 06/23/21 07:33 AMB (Rec: 06/23/21 08:16 AMB [id number]) Therapeutic Exercises Sidelying Exercises hip abduction Reps/Minutes 2x10 clamshell Sidelying Exercise Name cues not to rotate at lumbar spine Side bilateral Reps/Minutes 2x10 QL stretch Sidelying Exercise Name L Reps/Minutes 30x2 Sitting Exercises roll in Reps/Minutes 10 Comments cued TA/pelvic floor Standing Exercises active hamstring stretch Reps/Minutes 30x3 Other Exercises cat/neutral Reps/Minutes 10 sergei pose Reps/Minutes 30x3 1 Other Exercise Name bird dog UE only Reps/Minutes 10 Comments contract TA and PF Manual Therapy Treatment Joint Mobilizations 1 Joint MET for SI rotation-- in sidelying Reps/Duration x3 PT-OP-S Aquatic Treatment Start: 05/24/21 08:56 Freq: Status: Active Protocol: Document 06/22/21 08:08 SAK (Rec: 06/22/21 08:15 SAK [id number]) Aquatics Treatment Pool Entry/Exit Pool Entry/Exit Method Stairs Assistance Independent Water Walking [place] June Water Level Chest Level Walking Equipment UE paddles Level of Assistance Verbal Cues Comments UE's and paddles for drag march Water Level Chest Level Walking Equipment UE paddles Level of Assistance Verbal Cues Comments UE's and paddles for drag Sideways Walking Equipment UE paddles Comments cues for posture and core activation, small motion Backwards Water Level Chest Level Walking Equipment UE paddles Comments UE's and paddles for drag,cues for posture and core activation forward Water Level Chest Level Walking Equipment UE paddles Level of Assistance Verbal Cues Comments UE's and paddles for drag, cues for posture and core activation Lower Extremity Exercises hip flex/ext, ab/ad, circles Body Position Standing Water Level Chest Level Reps/Duration 10x ea Comments cues for posture and core activation, modify intensity and ROM to tolerance Lower Extremity Stretches HS Body Position Standing Water Level Chest Level Equipment Small Noodle Reps/Duration 10x ea Spinal Exercises deep water DLS Body Position Standing Water Level [place] Reps/Duration 6 min Comments small barbells: sukhdeep and unil pull downs, pendulum wall squat core stab Body Position Sitting Water Level Neck Level Equipment UE paddles Reps/Duration 10x ea Comments sukhdeep and unil hor ab/ad, flex/ ext, WBOS, NBOS [place] Activities [place] Activities Bicycle,Bicycle Backwards, Cross Country,Running Equipment flotation belt on chest Duration 15 min Comments able to do backward bicycling PT-OP-T Assessment and Plan Start: 05/24/21 08:56 Freq: Status: Active Protocol: Document 06/23/21 07:33 AMB (Rec: 06/23/21 08:16 AMB [id number]) Physical Therapy Assessment Goals Two Impairment HEP Short Term Goal (STG) Celsa will be consistent and independent with a HEP to stabilize her core. STG Duration 4 weeks One Impairment Gait Short Term Goal (STG) Celsa will walk over smooth surfaces for 15 minutes with R LE pain of 2/10 or less. STG Duration 4 weeks Alf Goal (LTG) Cesla will hike for 30 minutes with R LE pain of 2/10 or less. LTG Duration 6 weeks Assessment Summary Assessment Pt is continuing to have pain, has learned how to modify movement but is having to really reduce her walking. The pool is going well, wearing SI Belt but then notices hip flexors a little bit more. Physical Therapy Plan Next Visit Focus/Plan Next Note Type Treatment Note Next Visit Plan Follow up after trip to [place] with continued work on maintaining posterior pelvic tilt, manual therapy to reduce pelvic pain.
--- NOTE | 2021-07-17 12:52 | PT.OTN ---
Current Diagnoses Pain in right hip (07/17/21) Pelvic and perineal pain (07/17/21) Physical Therapy Treatment Note PT-OP-A Visit Information Start: 05/24/21 08:56 Freq: Status: Active Protocol: Document 07/17/21 07:30 AMB (Rec: 07/17/21 09:08 AMB [id number]) Out-Patient Physical Therapy Visit Information Visit Information Visit Type Treatment Note Visit Start Time 07:30 Visit Stop Time 08:15 Total Visit Minutes 45 Visit Number 10 PT-OP-B Current Condition Start: 05/24/21 08:56 Freq: Status: Active Protocol: Document 05/24/21 08:59 AMB (Rec: 05/24/21 09:52 AMB [id number]) Current Condition History of Current Condition Onset Date 2 weeks Current Complaints R hip/groin pain History of Current Condition Celsa is due in September with her second baby, she noticed R sided hip and groin pain a couple of weeks ago. Any kind of weightbearing through the right leg hurts, getting out of bed hurts when puttin weight through the legs, not the rolling or sitting up. Weightbearing through the right leg hurts (like lifting the left leg up and weightbearing on the right leg ). Does tend to go on hikes with her 5 year old a lot, but doesn't remember a specific event where she fell or stepped wrong. Treatment Goals Patient/Caregiver Goals Take care of 3 year old without pain, go through without so much R groin pain Prior Functional Status Baseline Function- ADL's Independent Baseline Function- Mobility Independent Current Functional Impairments (Reported) Functional Limitations- ADL's Difficulty donning/doffing shoes, dressing, taking care of 5 year old, getting onto/ off of floor Personal Factors Other Personal Factors That May Effect - due in September with Therapy/Recovery second son PT-OP-C Subjective Start: 05/24/21 08:56 Freq: Status: Active Protocol: Document 07/17/21 07:30 AMB (Rec: 07/17/21 09:08 AMB [id number]) OP-PT Subjective Patient Comments Patient Comments Pt reports tenderness with weightbearing when it's not PT-OP-F Manual Assessment Start: 05/24/21 08:56 Freq: Status: Active Protocol: Document 05/24/21 09:00 AMB (Rec: 05/28/21 09:42 AMB [id number]) Manual Assessments Soft Tissue Assessment Soft Tissue Mobility Assessment Tenderness over R adductor, iliopsoas and gluteals >L no real tenderness on L. Joint Mobility Assessment Joint Mobility Assessment No pain with palpation over pubic symphysis. R ASIS and medial malleolus appear long in supine. L LE distraction feels good, R is painful. PT-OP-K Range of Motion Start: 05/24/21 08:56 Freq: Status: Active Protocol: Document 05/24/21 09:00 AMB (Rec: 05/28/21 09:42 AMB [id number]) Lumbar Spine Range of Motion Lumbar Spine Active Percentage Comments overall hypermobile with full spinal flexion, extension, pt tends to push into pain to get a stretch PT-OP-L Special Tests Start: 05/24/21 08:56 Freq: Status: Active Protocol: Document 05/24/21 09:00 AMB (Rec: 05/28/21 09:42 AMB [id number]) Special Tests Hip Special Tests Scour Test Test Results + Comments painful on R with hip flexion and IR PT-OP-M Strength Start: 05/24/21 08:56 Freq: Status: Active Protocol: Document 05/24/21 09:00 AMB (Rec: 05/28/21 09:42 AMB [id number]) Hip Strength Hip Manual Muscle Testing Right Flexion (L2) 5 Normal Extension (S1) 5 Normal Abduction 4+ Good+ Left Flexion (L2) 5 Normal Extension (S1) 5 Normal Abduction 5 Normal PT-OP-Q Treatments Start: 05/24/21 08:56 Freq: Status: Active Protocol: Document 07/17/21 07:30 AMB (Rec: 07/21/21 12:46 AMB [id number]) Therapeutic Exercises Sidelying Exercises QL stretch Sidelying Exercise Name L Reps/Minutes 30x2 Sitting Exercises roll out Resistance #3 t band Equipment Used 10 roll in Reps/Minutes 10 Comments cued TA/pelvic floor active adductor stretch Reps/Minutes 30x4 Other Exercises sergei pose Reps/Minutes 30x3 Self-Care/Home Management Treatment Education Other Education ice vs heat, activity modification, appropriate HEP, management of condition after of baby. PT-OP-T Assessment and Plan Start: 05/24/21 08:56 Freq: Status: Active Protocol: Document 07/17/21 07:30 AMB (Rec: 07/17/21 09:08 [facility] [id number]) Physical Therapy Assessment Goals Two Impairment HEP Short Term Goal (STG) Celsa will be consistent and independent with a HEP to stabilize her core. STG Duration MET One Impairment Gait Short Term Goal (STG) Celsa will walk over smooth surfaces for 15 minutes with R LE pain of 2/10 or less. STG Duration 4 weeks-- progress made Prison Goal (LTG) Celsa will hike for 30 minutes with R LE pain of 2/10 or less. LTG Duration 6 weeks Assessment Summary Assessment Celsa's pain has improved to the point where she is not always in pain, and can at times walk without pain. This is most likely to her resting and not gardening and cleaning as much. She has done very well with aquatic therapy and would benefit from continuing with that for a few more appointments to finalize that program. Encouraged her to avoid single leg stance activiites that put more pressure on adductor tendon and pubic symphysis. Hopefully her symptoms resolve after the of her child, but she would be welcome to return to physical therapy if they do not. Physical Therapy Plan Frequency and Duration Frequency of Treatment 1x/Week Duration of Treatment 4 weeks Plan of Care Start Date 07/17/21 Plan of Care End Date 08/14/21 Therapeutic Interventions Therapeutic Interventions Aquatic Therapy,Home Exercise Program,Manual Therapy, Neuromuscular Re-education, Therapeutic Activities, Therapeutic Exercises Modalities Cold Pack/Ice Massage,Electric Stimulation,Hot Packs Next Visit Focus/Plan Next Note Type Treatment Note Next Visit Plan Celsa's pain is decreasing, she would like one more appointment of aquatic physical therapy and 1-2 more land appointments to finalize managing her symptoms.
--- NOTE | 2021-07-17 12:54 | PT.OPPOC ---
Physical, Occupational & Speech Therapy At [facility] Current Diagnoses Pain in right hip (07/17/21) Pelvic and perineal pain (07/17/21) Visit Care Team Role Provider Type Mihaela Montgomery CNM Attending Provider Advanced [employer] Farmer Family Provider Primary Care Provider Referring Provider Specialty: NURSING ADMIN Address: [address] [place] [address], [place] [address], [place], [address] Email: [email or web address] Plan Of Care PT-OP-T Assessment and Plan Start: 05/24/21 08:56 Freq: Status: Active Protocol: Document 07/17/21 07:30 AMB (Rec: 07/17/21 09:08 AMB [id number]) Physical Therapy Assessment Goals Two Impairment HEP Short Term Goal (STG) Celsa will be consistent and independent with a HEP to stabilize her core. STG Duration MET One Impairment Gait Short Term Goal (STG) Celsa will walk over smooth surfaces for 15 minutes with R LE pain of 2/10 or less. STG Duration 4 weeks-- progress made Long-Term Goal (LTG) Celsa will hike for 30 minutes with R LE pain of 2/10 or less. LTG Duration 6 weeks Assessment Summary Assessment Nathaniels pain has improved to the point where she is not always in pain, and can at times walk without pain. This is most likely to her resting and not gardening and cleaning as much. She has done very well with aquatic therapy and would benefit from continuing with that for a few more appointments to finalize that program. Encouraged her to avoid single leg stance activiites that put more pressure on adductor tendon and pubic symphysis. Hopefully her symptoms resolve after the of her child, but she would be welcome to return to physical therapy if they do not. Physical Therapy Plan Frequency and Duration Frequency of Treatment 1x/Week Duration of Treatment 4 weeks Plan of Care Start Date 07/17/21 Plan of Care End Date 08/14/21 Therapeutic Interventions Therapeutic Interventions Aquatic Therapy,Home Exercise Program,Manual Therapy, Neuromuscular Re-education, Therapeutic Activities, Therapeutic Exercises Modalities Cold Pack/Ice Massage,Electric Stimulation,Hot Packs Next Visit Focus/Plan Next Note Type Treatment Note Next Visit Plan Celsa's pain is decreasing, she would like one more appointment of aquatic physical therapy and 1-2 more land appointments to finalize managing her symptoms. Plan of Care Dates Plan of Care Start Date 07/17/21 Plan of Care End Date 08/14/21 Electronically Signed by: Alize Hirsch, PT 07/21/21 [id number] Please Sign and Return: I have reviewed this Plan of Care and certify that the skilled therapy services above are required to meet the patient?s needs. Physician Signature Date Printed Name and Credentials Clinical Instructor Signature Printed Name and Credentials
--- NOTE | 2021-07-24 16:13 | PT.OTN ---
Current Diagnoses Pain in right hip (07/24/21) Pelvic and perineal pain (07/24/21) Physical Therapy Treatment Note PT-OP-A Visit Information Start: 05/24/21 08:56 Freq: Status: Active Protocol: Document 07/24/21 07:30 AMB (Rec: 07/24/21 08:18 AMB [id number]) Out-Patient Physical Therapy Visit Information Visit Information Visit Type Treatment Note Visit Start Time 07:30 Visit Stop Time 08:15 Total Visit Minutes 45 Visit Number 11 PT-OP-B Current Condition Start: 05/24/21 08:56 Freq: Status: Active Protocol: Document 05/24/21 08:59 AMB (Rec: 05/24/21 09:52 AMB [id number]) Current Condition History of Current Condition Onset Date 2 weeks Current Complaints R hip/groin pain History of Current Condition Celsa is due in September with her second baby, she noticed R sided hip and groin pain a couple of weeks ago. Any kind of weightbearing through the right leg hurts, getting out of bed hurts when puttin weight through the legs, not the rolling or sitting up. Weightbearing through the right leg hurts (like lifting the left leg up and weightbearing on the right leg ). Does tend to go on hikes with her 5 year old a lot, but doesn't remember a specific event where she fell or stepped wrong. Treatment Goals Patient/Caregiver Goals Take care of 5 year old without pain, go through without so much R groin pain Prior Functional Status Baseline Function- ADL's Independent Baseline Function- Mobility Independent Current Functional Impairments (Reported) Functional Limitations- ADL's Difficulty donning/doffing shoes, dressing, taking care of 5 year old, getting onto/ off of floor Personal Factors Other Personal Factors That May Effect - due in September with Therapy/Recovery second son PT-OP-C Subjective Start: 05/24/21 08:56 Freq: Status: Active Protocol: Document 07/24/21 07:30 AMB (Rec: 07/24/21 08:18 AMB [id number]) OP-PT Subjective Patient Comments Patient Comments Pt was really busy over the weekend with Alexandra. PT-OP-F Manual Assessment Start: 05/24/21 08:56 Freq: Status: Active Protocol: Document 05/24/21 09:00 AMB (Rec: 05/28/21 09:42 AMB [id number]) Manual Assessments Soft Tissue Assessment Soft Tissue Mobility Assessment Tenderness over R adductor, iliopsoas and gluteals >L no real tenderness on L. Joint Mobility Assessment Joint Mobility Assessment No pain with palpation over pubic symphysis. R ASIS and medial malleolus appear long in supine. L LE distraction feels good, R is painful. PT-OP-K Range of Motion Start: 05/24/21 08:56 Freq: Status: Active Protocol: Document 05/24/21 09:00 AMB (Rec: 05/28/21 09:42 AMB [id number]) Lumbar Spine Range of Motion Lumbar Spine Active Percentage Comments overall hypermobile with full spinal flexion, extension, pt tends to push into pain to get a stretch PT-OP-L Special Tests Start: 05/24/21 08:56 Freq: Status: Active Protocol: Document 05/24/21 09:00 AMB (Rec: 05/28/21 09:42 AMB [id number]) Special Tests Hip Special Tests Scour Test Test Results + Comments painful on R with hip flexion and IR PT-OP-M Strength Start: 05/24/21 08:56 Freq: Status: Active Protocol: Document 05/24/21 09:00 AMB (Rec: 05/28/21 09:42 AMB [id number]) Hip Strength Hip Manual Muscle Testing Right Flexion (L2) 5 Normal Extension (S1) 5 Normal Abduction 4+ Good+ Left Flexion (L2) 5 Normal Extension (S1) 5 Normal Abduction 5 Normal PT-OP-Q Treatments Start: 05/24/21 08:56 Freq: Status: Active Protocol: Document 07/24/21 07:30 AMB (Rec: 07/24/21 08:18 AMB [id number]) Therapeutic Exercises Other Exercises cat/neutral Reps/Minutes 10 1 Other Exercise Name bird dog UE only Reps/Minutes 10 Comments contract TA and PF Self-Care/Home Management Treatment Education Other Education Kinesiotape for diastasis recti, vs binding, progression of HEP post PT-OP-S Aquatic Treatment Start: 05/24/21 08:56 Freq: Status: Active Protocol: Document 06/22/21 08:08 SAK (Rec: 06/22/21 08:15 SAK [id number]) Aquatics Treatment Pool Entry/Exit Pool Entry/Exit Method Stairs Assistance Independent Water Walking [place] June Water Level Chest Level Walking Equipment UE paddles Level of Assistance Verbal Cues Comments UE's and paddles for drag june Water Level Chest Level Walking Equipment UE paddles Level of Assistance Verbal Cues Comments UE's and paddles for drag Sideways Walking Equipment UE paddles Comments cues for posture and core activation, small motion Backwards Water Level Chest Level Walking Equipment UE paddles Comments UE's and paddles for drag,cues for posture and core activation forward Water Level Chest Level Walking Equipment UE paddles Level of Assistance Verbal Cues Comments UE's and paddles for drag, cues for posture and core activation Lower Extremity Exercises hip flex/ext, ab/ad, circles Body Position Standing Water Level Chest Level Reps/Duration 10x ea Comments cues for posture and core activation, modify intensity and ROM to tolerance Lower Extremity Stretches HS Body Position Standing Water Level Chest Level Equipment Small Noodle Reps/Duration 10x ea Spinal Exercises deep water DLS Body Position Standing Water Level [place] Reps/Duration 6 min Comments small barbells: sukhdeep and unil pull downs, pendulum wall squat core stab Body Position Sitting Water Level Neck Level Equipment UE paddles Reps/Duration 10x ea Comments sukhdeep and unil hor ab/ad, flex/ ext, WBOS, NBOS [place] Activities [place] Activities Bicycle,Bicycle Backwards, Cross Country,Running Equipment flotation belt on chest Duration 15 min Comments able to do backward bicycling PT-OP-T Assessment and Plan Start: 05/24/21 08:56 Freq: Status: Active Protocol: Document 07/24/21 07:30 AMB (Rec: 07/24/21 08:18 AMB [id number]) Physical Therapy Assessment Goals Two Impairment HEP Short Term Goal (STG) Celsa will be consistent and independent with a HEP to stabilize her core. STG Duration MET One Impairment Gait Short Term Goal (STG) Celsa will walk over smooth surfaces for 15 minutes with R LE pain of 2/10 or less. STG Duration Intermittently met- on a good day Master Control Engineer Goal (LTG) Celsa will hike for 30 minutes with R LE pain of 2/10 or less. LTG Duration 6 weeks Assessment Summary Assessment Celsa's pain, while overall better than at evaluation, continues when she walks extensively, or spends a lot of time on the floor taking care of her 5 year old. She continues to find relief with heat and with the pool. We spent time today discussing post marci care for diastasis recti/pelvic floor weakness. If she should come back to PT (if pain not consistently better at 6 weeks would recommend pt return to PT. ) Pt will continue with aquatic PT as that is helping the most with decreasing her pain at this point. Physical Therapy Plan Frequency and Duration Frequency of Treatment 1x/Week Duration of Treatment 4 weeks Plan of Care Start Date 07/17/21 Plan of Care End Date 08/14/21 Next Visit Focus/Plan Next Note Type Treatment Note Next Visit Plan Progress aquatics
--- NOTE | 2021-08-07 15:52 | PT.OTN ---
Current Diagnoses Pain in right hip (08/07/21) Pelvic and perineal pain (08/07/21) Physical Therapy Treatment Note PT-OP-A Visit Information Start: 05/24/21 08:56 Freq: Status: Active Protocol: Document 08/07/21 15:45 SAK (Rec: 08/07/21 15:51 SAK [id number]) Out-Patient Physical Therapy Visit Information Visit Information Visit Type Aquatic Treatment Note Visit Start Time 10:15 Visit Stop Time 11:00 Total Visit Minutes 45 Visit Number 12 PT-OP-B Current Condition Start: 05/24/21 08:56 Freq: Status: Active Protocol: Document 05/24/21 08:59 AMB (Rec: 05/24/21 09:52 AMB [id number]) Current Condition History of Current Condition Onset Date 2 weeks Current Complaints R hip/groin pain History of Current Condition Celsa is due in September with her second baby, she noticed R sided hip and groin pain a couple of weeks ago. Any kind of weightbearing through the right leg hurts, getting out of bed hurts when puttin weight through the legs, not the rolling or sitting up. Weightbearing through the right leg hurts (like lifting the left leg up and weightbearing on the right leg ). Does tend to go on hikes with her 5 year old a lot, but doesn't remember a specific event where she fell or stepped wrong. Treatment Goals Patient/Caregiver Goals Take care of 5 year old without pain, go through without so much R groin pain Prior Functional Status Baseline Function- ADL's Independent Baseline Function- Mobility Independent Current Functional Impairments (Reported) Functional Limitations- ADL's Difficulty donning/doffing shoes, dressing, taking care of 5 year old, getting onto/ off of floor Personal Factors Other Personal Factors That May Effect - due in September with Therapy/Recovery second son PT-OP-C Subjective Start: 05/24/21 08:56 Freq: Status: Active Protocol: Document 08/07/21 15:45 SAK (Rec: 08/07/21 15:51 SAK [id number]) OP-PT Subjective Patient Comments Patient Comments Patient reports having rough morning schedule-jeong. Had to bring son to aquatic PT today but states she brings him when she comes to do her aquatic exercises. Agreeable to today being last aquatic therapy session. Will continue with aquatic exercises indep and return for PT after 6 week post check up if needed. PT-OP-F Manual Assessment Start: 05/24/21 08:56 Freq: Status: Active Protocol: Document 05/24/21 09:00 AMB (Rec: 05/28/21 09:42 AMB [id number]) Manual Assessments Soft Tissue Assessment Soft Tissue Mobility Assessment Tenderness over R adductor, iliopsoas and gluteals >L no real tenderness on L. Joint Mobility Assessment Joint Mobility Assessment No pain with palpation over pubic symphysis. R ASIS and medial malleolus appear long in supine. L LE distraction feels good, R is painful. PT-OP-K Range of Motion Start: 05/24/21 08:56 Freq: Status: Active Protocol: Document 05/24/21 09:00 AMB (Rec: 05/28/21 09:42 AMB [id number]) Lumbar Spine Range of Motion Lumbar Spine Active Percentage Comments overall hypermobile with full spinal flexion, extension, pt tends to push into pain to get a stretch PT-OP-L Special Tests Start: 05/24/21 08:56 Freq: Status: Active Protocol: Document 05/24/21 09:00 AMB (Rec: 05/28/21 09:42 AMB [id number]) Special Tests Hip Special Tests Scour Test Test Results + Comments painful on R with hip flexion and IR PT-OP-M Strength Start: 05/24/21 08:56 Freq: Status: Active Protocol: Document 05/24/21 09:00 AMB (Rec: 05/28/21 09:42 AMB [id number]) Hip Strength Hip Manual Muscle Testing Right Flexion (L2) 5 Normal Extension (S1) 5 Normal Abduction 4+ Good+ Left Flexion (L2) 5 Normal Extension (S1) 5 Normal Abduction 5 Normal PT-OP-Q Treatments Start: 05/24/21 08:56 Freq: Status: Active Protocol: Document 07/24/21 07:30 AMB (Rec: 07/24/21 08:18 AMB [id number]) Therapeutic Exercises Other Exercises cat/neutral Reps/Minutes 10 1 Other Exercise Name bird dog UE only Reps/Minutes 10 Comments contract TA and PF Self-Care/Home Management Treatment Education Other Education Kinesiotape for diastasis recti, vs binding, progression of HEP post PT-OP-S Aquatic Treatment Start: 05/24/21 08:56 Freq: Status: Active Protocol: Document 08/07/21 15:[address] [facility] (Rec: 08/07/21 15:52 [facility] [id number]) Aquatics Treatment Pool Entry/Exit Pool Entry/Exit Method Stairs Assistance Independent Water Walking [place] June Water Level Chest Level Walking Equipment UE paddles Level of Assistance Verbal Cues Comments UE's and paddles for drag march Water Level Chest Level Walking Equipment UE paddles Level of Assistance Verbal Cues Comments UE's and paddles for drag Sideways Walking Equipment UE paddles Comments cues for posture and core activation, small motion Backwards Water Level Chest Level Walking Equipment UE paddles Comments UE's and paddles for drag,cues for posture and core activation forward Water Level Chest Level Walking Equipment UE paddles Level of Assistance Verbal Cues Comments UE's and paddles for drag, cues for posture and core activation Spinal Exercises deep water DLS Body Position Standing Water Level [place] Reps/Duration 10 min Comments med barbells: sukhdeep and unil pull downs, pendulum wall squat core stab Body Position Sitting Water Level Neck Level Equipment UE paddles Reps/Duration 10x ea Comments sukhdeep and unil hor ab/ad, flex/ ext, WBOS, NBOS, LAQ [place] Activities [place] Activities Bicycle,Bicycle Backwards, Cross Country,Running Equipment flotation belt on chest Duration 15 min Comments able to do backward bicycling PT-OP-T Assessment and Plan Start: 05/24/21 08:56 Freq: Status: Active Protocol: Document 08/07/21 15:[address] [facility] (Rec: 08/07/21 15:51 [facility] [id number]) Physical Therapy Assessment Goals Two Impairment HEP Short Term Goal (STG) Celsa will be consistent and independent with a HEP to stabilize her core. STG Duration MET One Impairment Gait Short Term Goal (STG) Celsa will walk over smooth surfaces for 15 minutes with R LE pain of 2/10 or less. STG Duration Intermittently met- on a good day Detention Goal (LTG) Celsa will hike for 30 minutes with R LE pain of 2/10 or less. LTG Duration 6 weeks Assessment Summary Assessment Celsa is independent with aquatic exercise program, given further guidance on ways to progress the exercises as tolerated and she demonstrated good understanding. Should do well with continued independent aquatic exercises; she has best tolerance for exercises in the pool at this time. Will be discharged from PT after today's visit. Physical Therapy Plan Discharge Physical Therapy Discharge Reasons Goals Met
--- NOTE | 2021-08-07 15:57 | PT.OPDS ---
Current Diagnoses Pain in right hip (08/07/21) Pelvic and perineal pain (08/07/21) Visit Care Team Role Provider Type Mihaela Montgomery CNM Attending Provider Advanced Senior Network Architect Family Provider Primary Care Provider Referring Provider Specialty: PATTERN DRAFTER Address: [address] [place] [address], [address] [facility], [place], [address] Email: [email or web address] Visit Number Visit Number 12 Discharge Summary PT-OP-B Current Condition Start: 05/24/21 08:56 Freq: Status: Active Protocol: Document 05/24/21 08:59 AMB (Rec: 05/24/21 09:52 AMB [id number]) Current Condition History of Current Condition Onset Date 2 weeks Current Complaints R hip/groin pain History of Current Condition Celsa is due in September with her second baby, she noticed R sided hip and groin pain a couple of weeks ago. Any kind of weightbearing through the right leg hurts, getting out of bed hurts when puttin weight through the legs, not the rolling or sitting up. Weightbearing through the right leg hurts (like lifting the left leg up and weightbearing on the right leg ). Does tend to go on hikes with her 5 year old a lot, but doesn't remember a specific event where she fell or stepped wrong. Treatment Goals Patient/Caregiver Goals Take care of 5 year old without pain, go through without so much R groin pain Prior Functional Status Baseline Function- ADL's Independent Baseline Function- Mobility Independent Current Functional Impairments (Reported) Functional Limitations- ADL's Difficulty donning/doffing shoes, dressing, taking care of 5 year old, getting onto/ off of floor Personal Factors Other Personal Factors That May Effect - due in September with Therapy/Recovery second son PT-OP-C Subjective Start: 05/24/21 08:56 Freq: Status: Active Protocol: Document 08/07/21 15:45 SAK (Rec: 08/07/21 15:51 SAK [id number]) OP-PT Subjective Patient Comments Patient Comments Patient reports having rough morning schedule-jeong. Had to bring son to aquatic PT today but states she brings him when she comes to do her aquatic exercises. Agreeable to today being last aquatic therapy session. Will continue with aquatic exercises indep and return for PT after 6 week post check up if needed. PT-OP-F Manual Assessment Start: 05/24/21 08:56 Freq: Status: Active Protocol: Document 05/24/21 09:00 AMB (Rec: 05/28/21 09:42 AMB [id number]) Manual Assessments Soft Tissue Assessment Soft Tissue Mobility Assessment Tenderness over R adductor, iliopsoas and gluteals >L no real tenderness on L. Joint Mobility Assessment Joint Mobility Assessment No pain with palpation over pubic symphysis. R ASIS and medial malleolus appear long in supine. L LE distraction feels good, R is painful. PT-OP-K Range of Motion Start: 05/24/21 08:56 Freq: Status: Active Protocol: Document 05/24/21 09:00 AMB (Rec: 05/28/21 09:42 AMB [id number]) Lumbar Spine Range of Motion Lumbar Spine Active Percentage Comments overall hypermobile with full spinal flexion, extension, pt tends to push into pain to get a stretch PT-OP-L Special Tests Start: 05/24/21 08:56 Freq: Status: Active Protocol: Document 05/24/21 09:00 AMB (Rec: 05/28/21 09:42 AMB [id number]) Special Tests Hip Special Tests Scour Test Test Results + Comments painful on R with hip flexion and IR PT-OP-M Strength Start: 05/24/21 08:56 Freq: Status: Active Protocol: Document 05/24/21 09:00 AMB (Rec: 05/28/21 09:42 AMB [id number]) Hip Strength Hip Manual Muscle Testing Right Flexion (L2) 5 Normal Extension (S1) 5 Normal Abduction 4+ Good+ Left Flexion (L2) 5 Normal Extension (S1) 5 Normal Abduction 5 Normal PT-OP-T Assessment and Plan Start: 05/24/21 08:56 Freq: Status: Active Protocol: Document 08/07/21 15:54 AMB (Rec: 08/07/21 15:57 AMB [id number]) Physical Therapy Assessment Goals Two Impairment HEP Short Term Goal (STG) Celsa will be consistent and independent with a HEP to stabilize her core. STG Duration MET One Impairment Gait Short Term Goal (STG) Celsa will walk over smooth surfaces for 15 minutes with R LE pain of 2/10 or less. STG Duration Intermittently met- on a good day Box Packer Goal (LTG) Celsa will hike for 30 minutes with R LE pain of 2/10 or less. LTG Duration NOT MET Assessment Summary Assessment Celsa is independent with an aquatic and land based exercise program at this time. She is feeling ready for discharge, but would be welcome to return to PT after the of her child if she continues to have symptoms. Physical Therapy Plan Discharge Physical Therapy Discharge Reasons Goals Met
== END 2021-08-08 09:28 ==
LOC: PHYS 10:15
PROVIDERS: Family Provider Nurse Practitioner Obstetrics & Gynecology; PCP Nurse Practitioner Obstetrics & Gynecology; Referring Provider Nurse Practitioner Obstetrics & Gynecology; Visit Provider Nurse Practitioner Obstetrics & Gynecology
DX: R10.2 Pelvic and perineal pain (principal); M25.551 Pain in right hip
CPT/HCPCS: 97110; 97113; 97140; 97161; 97530; 97535

== ENCOUNTER → 2021-08-23 11:58 | Outpatient (ROUT) | payer OTHER, SELFPAY ==
[2021-08-23 12:05] LABS: Hematocrit 32.8 % (36-46); Hemoglobin 10.9 g/dL (12.0-16.0); Mean Corpuscular HGB Conc 33.3 % (30-36); Mean Corpuscular Hemoglobin 30.8 PG (26-34); Mean Corpuscular Volume 92.5 fL (80-100); Platelet Count 194 X10^3/uL (150-400); Red Blood Cell Count 3.55 X10^6/uL (4.0-5.2); Red Cell Distribution Width 14.8 % (11.6-14.8)
== END ==
PROVIDERS: Family Provider Nurse Practitioner Obstetrics & Gynecology; PCP Nurse Practitioner Obstetrics & Gynecology; Visit Provider Nurse Practitioner Obstetrics & Gynecology
DX: Z34.90 Encounter for supervision of normal pregnancy, unspecified, unspecified trimester (principal); Z36.85 Encounter for antenatal screening for Streptococcus B; Z3A.36 36 weeks gestation of pregnancy
CPT/HCPCS: 85027; 87081; 87147

== ENCOUNTER 2021-08-31 18:49 | Inpatient (IN) | payer OTHER, SELFPAY ==
[2021-08-31 19:10] VITALS: BP 132/67; PULSE 98; RESP 22; TEMP 36.8; O2SAT 98; BMI 26.9
[2021-08-31] MEDS: LACTATED RINGERS 1,000 ML 100 ML IV (19:25)
[2021-08-31] MEDS: PENICILLIN G POTASSIUM 5,000,000 UNIT in DEXTROSE 5% IN WATER 250 ML 250 UNIT IV (19:25)
[2021-08-31 19:28] LABS: Add Manual Diff / Slide Review NO; Basophils Absolute Auto 0 /uL (0-100); Basophils Percent Auto 0.4 % (0-2); Eosinophils Absolute Auto 100 /uL (0-450); Eosinophils Percent Auto 1.1 % (2-4); Hematocrit 33.5 % (36-46); Hemoglobin 11.3 g/dL (12.0-16.0); Lymphocytes Absolute Auto 2300 /uL (1100-4500); Lymphocytes Percent Auto 23.7 % (25-40); Mean Corpuscular HGB Conc 33.6 % (30-36); Mean Corpuscular Hemoglobin 30.2 PG (26-34); Monocytes Absolute Auto 800 /uL (0-900); Monocytes Percent Auto 7.9 % (3-14); Neutrophils Absolute Auto 6500 /uL (1500-7000); Neutrophils Percent Auto 66.9 % (50-75); Platelet Count 210 X10^3/uL (150-400); Red Blood Cell Count 3.72 X10^6/uL (4.0-5.2); Red Cell Distribution Width 14.5 % (11.6-14.8); White Blood Cell Count 9.7 X10^3/uL (4.5-11.0)
[2021-08-31 20:43] LABS: COVID19 -Nasal RAPID Negative (Negative)
--- NOTE | 2021-08-31 21:49 | P.HPOB_ITS ---
OB HPI Date/Time Date of admission: 08/31/21 Date Patient Seen: 08/31/21 Time Patient Seen: 19:00 History of Present Condition Chief complaint: Need Antibiotics, Water Broke : 3 Para: 1 Estimated Date of Delivery: 09/19/21 Estimated Gestational Age (weeks): 37.2 Narrative: Celsa Del Rio is a 31 year old female @ [id number] by LMP and 8wk US who presents for evaluation of SROM. Large gush of clear fluid at 1730 and has continued to leak. Walking has brought on a few stronger contractions, but noth ing regular. Uncomplicated PN care w/ CNM. Desires low intervention . Declines continuous EFM. Consents to antibiotics for GBS positive status. is present and supportive. Comments: VS: BP132/67mmHg, HR 80, T 98.3F Temporal History of Present care: good care, initiated at week # (8), number of visits (8) and pounds weight gain (36) Dating criteria: LMP confirmed by 1st trimester US Ultrasounds: normal 1st trimester US and normal mid trimester US Obstetrical complications: none Medical complications: none Preadmission Labs Blood type: O (+) positive -: Antibody screen: negative, GBS status: positive, HBsAG: negative, HIV: negative and RPR/VDLR: negative -: Chlamydia screen: not detected and Gonorrhea screen: not detected -: Rubella: immune and Varicella: not immune HCT: 32.8 HCAB: reactive Narrative: 2wk QID BGs 100%WNL Prior (ies) History: 04/28/2016-NSVB, Male (Luiz), 39wks, 15hr labor, 2nd degree, 7#5oz 06/06/2020-SAB Evaluation Evaluation Baseline heart rate: 140 Comments: No increases or decreases Large amounts of clear fluid, AmniSure not indicated CE deferred until after 2 hours of strong contractions PFSH Surgical History History of tonsillectomy Family History Father History of diabetes mellitus, type II Mother Hypoglycemia Social History Smoking Status: Never smoker Meds Home Medications and Allergies Allergies Allergy/AdvReac Type Severity Reaction Status Date / Time No Known Drug Allergies Allergy Verified 07/01/18 16:57 Review of Systems Review of Systems ROS: Yes unobtainable due to mental condition OB Exam Resp Effort & Inspection: normal respiratory effort Auscultation: clear to auscultation bilaterally Cardio Rate: regular rate Rhythm: regular rhythm Presentation: vertex Amniotic Fluid: clear Objective Labs Result Diagrams: 08/31/21 19:19 Labs: Laboratory Results - last 24 hr 08/31/21 08/31/21 08/31/21 19:19 19:19 19:29 WBC 9.7 RBC 3.72 L Hgb 11.3 L Hct 33.5 L MCV 90.0 MCH 30.2 MCHC 33.6 RDW 14.5 Plt Count 210 Neut % (Auto) 66.9 Lymph % (Auto) 23.7 L [place] % (Auto) 7.9 Eos % (Auto) 1.1 L Baso % (Auto) 0.4 Neut # (Auto) 6500 Lymph # (Auto) 2300 [place] # (Auto) 800 Eos # (Auto) 100 Baso # (Auto) 0 SARS-CoV-2 (PCR) Negative Blood Type O Positive Antibody Screen Negative Assessment and Plan Assessment and Plan Assessment and Plan narrative: A: Term primipara SROM Prophylactic antibiotics indicated Category 1 FHR P: Administer loading dose of penicillin. D/t staffing, lack of available labor rooms and patient preference, patient plans to return home for 2 hours, then return for full admission and next dose of antibiotics. Return at 2300 for second dose of pencillin or sooner with regular contractions.
[2021-08-31] MEDS: KETOROLAC 30 MG/ML VIAL IV (23:52)
--- NOTE | 2021-08-31 23:59 | P.PCNOB_ITS ---
Labor & Delivery Delivery date: 08/31/21 Intrapartal Events: None Cervical ripening method: none Induction method: none Delivery monitor: external FHT Route of delivery: Episiotomy description: None L&D Laceration Description: None Quantitative Blood Loss: 900 Anesthesia Type: Other (Nitrous Oxide) Narrative: Celsa began to feel an urge to push, laboring on hands and knees on CUB chair in bed. Pushed with steady descent. Delivered ABBY and restituted ROT. Shoulders delivered easily without additional maneuvers and there was no nuchal cord. [place] was passed through maternal legs to mother's arms. Mother and baby assisted to semi-fowlers position and skin to skin. Active management declined by patient. Cord stopped pulsating and offered cord clamping, pt declined, request to wait until placenta is delivered. Expectant management of placenta until brisk bleeding noted. Strongly recommended IV pitocin, cord traction, and fundal massage and pt accepted, providing her own fundal massage. [place] intact placenta, membranes and 3VC delivered 33 minutes after baby. Fundus immediately firm, again palpated by patient, per her request. Scant vaginal bleeding noted. QBL 900 ml. Vagina and perineum inspected and intact. Mother and baby skin to skin and as I left the room. Baby 1: gender: Male Presentation: vertex Position: Right Occiput Anterior Placenta delivery description: Spontaneous (Schultze) and Normal Configuration Cord Vessel Description: 3 Vessels score (1 min): 8 score (5 min): 9 weight: 3.194 kg Plan for aftercare: Routine care
--- NOTE | 2021-09-01 02:23 | P.DS_ITS ---
Discharge Providers Provider Date of admission: 08/31/21 22:59 Discharge Date: 09/01/21 Primary care physician: Mihaela Montgomery CNM Consults: 09/01/21 23:01 Consult to Smokehouse Worker Routine Comment: Discharge provider: Mihaela Montgomery CNM Summary Hospital Course Date Patient Seen: 09/01/21 Time Patient Seen: 02:24 Diagnoses: o80 Hospital Course: Celsa is 3.5 hours s/p NSVB with intact perineum and heavy bleeding prior to d elivery of the placenta (QBL 900mL). Voiding, ambulating and independently. Had a single dose of Toradol IV and pain is well controlled. Vaginal bleeding is moderate, without clots. Patient is eager for discharge to home. She and her feel confident taking their home and decline recommendation stay for 18-24 hours. Peripartum Data Delivery Method: Natural Vaginal Laceration Description: None Episiotomy description: None complications: none Duncan 1: Gender: Male Disposition of : home Discharge Diagnosis (1) Encounter for full-term uncomplicated delivery: Status: Acute Time Spent with Patient Time attestation: Total time spent providing and/or coordinating discharge services: Objective Labs Result Diagrams: 08/31/21 19:19 Labs: Laboratory Results - last 24 hr 08/31/21 08/31/21 08/31/21 19:19 19:19 19:29 WBC 9.7 RBC 3.72 L Hgb 11.3 L Hct 33.5 L MCV 90.0 MCH 30.2 MCHC 33.6 RDW 14.5 Plt Count 210 Neut % (Auto) 66.9 Lymph % (Auto) 23.7 L [place] % (Auto) 7.9 Eos % (Auto) 1.1 L Baso % (Auto) 0.4 Neut # (Auto) 6500 Lymph # (Auto) 2300 [place]win # (Auto) 800 Eos # (Auto) 100 Baso # (Auto) 0 SARS-CoV-2 (PCR) Negative Blood Type O Positive Antibody Screen Negative Exam Vital Signs (past 8 hours): - 08/31/21 19:10 Temperature 98.3 F Pulse Rate 98 H Respiratory Rate 22 Blood Pressure 132/67 Pulse Oximetry 98 Oxygen Delivery Method Room Air Discharge Plan Discharge Plan Patient Disposition: Home Discharge orders & Medications Follow up/Referrals: Mihaela Montgomery CNM [Primary Care Provider] - (Follow-up by Telehealth 09/13/21 @ 0991 Follow-up in office 10/11/21 @ 1010) Diet/Activity/Treatments Diet: Regular Activity: pelvic rest x 6 weeks Skin/Wound/Dressing Care Report to your healthcare provider any signs of infection, such as:: chills, fever, increased pain, unusual drainage and unusual redness Visit Report/Discharge Packet Instructions: DI for Hemorrhage, Depression Stand Alone Forms: Discharge: Care Discharge Data Primary Care Provider: Mihaela Montgomery
== END 2021-09-01 03:30 | disposition home or self-care (01) | DRG 807 ==
LOC: ED 19:05 → AC 19:21 → LABOR 23:00
PROVIDERS: Admitting Provider Nurse Practitioner Obstetrics & Gynecology; Emergency Provider Nurse Practitioner Obstetrics & Gynecology; Family Provider Nurse Practitioner Obstetrics & Gynecology; PCP Nurse Practitioner Obstetrics & Gynecology; Referring Provider Nurse Practitioner Obstetrics & Gynecology; Visit Provider Nurse Practitioner Obstetrics & Gynecology
DX: O42.02 Full-term premature rupture of membranes, onset of labor within 24 hours of rupture (principal); Z37.0 Single live birth; Z3A.37 37 weeks gestation of pregnancy; O99.824 Streptococcus B carrier state complicating childbirth; Z20.822 Contact with and (suspected) exposure to COVID-19
CPT/HCPCS: 36415; 59025; 59050; 85025; 86850; 86900; 86901; 87635; 99283; C9803; J1885; J2540

== ENCOUNTER → 2021-11-22 08:10 | Outpatient (CLI) | payer OTHER, SELFPAY ==
--- NOTE | 2021-11-22 | DI.US.S_ITS ---
PROCEDURE: US PELVIC COMPLETE INDICATIONS: RULE OUT RETAINED POC's TECHNIQUE: Real-time scanning was performed of the pelvic organs, with image documentation. Additional endovaginal scanning was necessary due to incomplete visualization of the adnexal and endometrial structures by transabdominal scanning. COMPARISON: None. FINDINGS: Uterus: The uterus measures 7.3 x 5.5 x 5.6 centimeters. The endometrium measures 7 millimeters, with IUD in place. Cervix is within normal limits. The uterus is retroverted. No vascular mass is seen. Shadowing from the IUD slightly limit evaluation. Ovaries: 2.6 x 1.1 x 2.5 centimeters on the right. 3.4 x 1.0 x 2.3 centimeters on the left. Dominant follicle seen on the left. Other: No pathologic free abdominal or pelvic fluid. IMPRESSION: No definite retained products of conception. There is an IUD and normal endometrial thickness. Normal ovaries for age. We strive to produce accurate, complete, and clear reports of imaging services. To assist us in improving patient care, this report was composed using standard report templates and voice recognition software. Therefore, it may contain abnormal punctuation, insertions and/or omissions. Occasional wrong-word or sound-alike substitutions may occur. Though we review the report and make efforts to correct it, we do recommend that the report be read carefully in proper context to recognize any text inaccuracies. Dictated by: Ahsan Jin M.D. on 11/22/2021 at 8:44 Approved by: Ahsan Jin M.D. on 11/22/2021 at 8:46
== END ==
PROVIDERS: Family Provider Nurse Practitioner Obstetrics & Gynecology; Referring Provider Nurse Practitioner Obstetrics & Gynecology; Visit Provider Nurse Practitioner Obstetrics & Gynecology
DX: N93.9 Abnormal uterine and vaginal bleeding, unspecified (principal); Z97.5 Presence of (intrauterine) contraceptive device
CPT/HCPCS: 76856

== ENCOUNTER 2022-03-21 07:30 | Outpatient (RCR) | payer OTHER, SELFPAY ==
--- NOTE | 2022-01-05 11:54 | PT.OIE ---
Current Diagnoses Pain in right hip (01/05/22) Rectocele (01/05/22) Deep dyspareunia (01/05/22) Pelvic and perineal pain (01/05/22) Past Surgical History (Last Reviewed 08/31/21 @ 22:06 by Mihaela Montgomrey CNM) History of tonsillectomy Visit Care Team Role Provider Type Mihaela Montgomery CNM Attending Provider Advanced Speech/Language Therapist Family Provider Primary Care Provider Referring Provider Specialty: ADMIN ASSISTANT Address: [address] [place] [address], [address], [facility] Email: [email or web address] Physical Therapy Initial Evaluation PT-OP-A Visit Information Start: 01/04/22 20:14 Freq: Status: Active Protocol: Document 01/05/22 08:13 AMB (Rec: 01/05/22 09:24 AMB [id number]) Out-Patient Physical Therapy Visit Information Visit Information Visit Type Initial Evaluation Visit Start Time 08:15 Visit Stop Time 09:00 Total Visit Minutes 45 Visit Number 1 PT-OP-B Current Condition Start: 01/04/22 20:14 Freq: Status: Active Protocol: Document 01/05/22 08:13 AMB (Rec: 01/05/22 09:24 AMB [id number]) Current Condition History of Current Condition Onset Date 08/30/21 Current Complaints rectocele, painful intercourse History of Current Condition Has had two episodes of the rectum bulging into the vagina when contipated since the vaginal of her second son 4 months ago. Reports was not traumatic, only had to push a couple of times. A couple times a week feels like the cervix comes down and this limits the enjoyability of intercourse. Hasn't really enjoyed intercourse since the of her son, does use lots of lubricant because is breast feeding. Personal Factors Other Personal Factors That May Effect Hx of back pain when , Therapy/Recovery currently does have joint pain with exercise, so hasn't been exercising as much, thinks that's because she's about 20# over conception weight. PT-OP-C Subjective Start: 01/04/22 20:14 Freq: Status: Active Protocol: Document 01/05/22 12:24 AMB (Rec: 01/05/22 12:42 AMB [id number]) Patient Questionnaires Pelvic Pain and Urgency/Frequency Patient Symptom Scale Pelvic Pain Score 5 PT-OP-I Pelvic Floor Start: 01/04/22 20:14 Freq: Status: Active Protocol: Document 01/05/22 12:24 AMB (Rec: 01/05/22 12:42 AMB [id number]) Pelvic Floor Assessment Urine Urinary Symptoms Prolapse,Pain Leaks Per Day 0 Bowel Bowel Symptoms Constipation Other Bowel Symptoms rectocele Prolapse Uterine Prolapse Grade 1 Rectocele Grade 2 Perineal Descent Resting Absent Bearing Present Contraction Ability Voluntary Contraction Moderate Voluntary Relaxation Moderate Manual Muscle Testing Left 3 Manual Muscle Testing Right 3 Manual Muscle Testing Anterior 3 Manual Muscle Testing Posterior 4 Muscle Endurance (Seconds) 10 Number of Quick Contractions In 10 5 Seconds PT-OP-T Assessment and Plan Start: 01/04/22 20:14 Freq: Status: Active Protocol: Document 01/05/22 08:15 AMB (Rec: 01/11/22 11:52 AMB [id number]) Physical Therapy Assessment Rehab Potential Rehabilitation Potential Good Evaluation Complexity Number of Personal Factors/Comorbidities 0 Number of Body Systems Impaired 3 Clinical Presentation at Evaluation Stable Impairments Impairments Activity Tolerance,Pain, Strength Goals Two Impairment prolapse Short Term Goal (STG) Celsa will be able to insert a menstrual cup without pain. STG Duration 5 weeks Nursing Home Goal (LTG) Celsa will report normal bowel movements that do not reproduce rectocele sx. LTG Duration 10 weeks One Impairment pain Short Term Goal (STG) Celsa will engage in the intercourse of her choice without an increase in pain. STG Duration 5 weeks Nursing Home Goal (LTG) Celsa will be consistent and independent with a HEP for pelvic floor strengthening. LTG Duration 10 weeks Assessment Summary Assessment Celsa reports concern regarding painful intercourse in addition to rectocele sx with constipation. She reports her constipation is now under control with additional fiber, but her grandmother did need to have prolapse surgery and she is concerned about sx worsening with age. She also notes pain /difficulty inserting menstrual cup. She was instructed in pelvic floor strengthening in a gravity assisted position for symptom reduction, as she feels the cervix being low is the reason for the painful intercourse. Her pelvic floor strength was moderate, but considering her symptoms she would benefit from continued education in progressive strengthening. Physical Therapy Plan Frequency and Duration Frequency of Treatment 1x/Week Duration of treatment (weeks) 10 Plan of Care Start Date 01/05/22 Plan of Care End Date 03/16/22 Therapeutic Interventions Therapeutic Interventions Home Exercise Program,Manual Therapy,Neuromuscular Re- education,Self-Care/Home Management,Therapeutic Activities,Therapeutic Exercises Modalities Biofeedback,Electric Stimulation Next Visit Focus/Plan Next Note Type Treatment Note Next Visit Plan Can consider sEMG, follow up on pain with intercourse
--- NOTE | 2022-01-05 11:54 | PT.OPPOC ---
Physical, Occupational & Speech Therapy At [facility] Current Diagnoses Pain in right hip (01/05/22) Rectocele (01/05/22) Deep dyspareunia (01/05/22) Pelvic and perineal pain (01/05/22) Visit Care Team Role Provider Type Mihaela Montgomery CNM Attending Provider Advanced Research Neuropsychologist Family Provider Primary Care Provider Referring Provider Specialty: CANVAS CUTTER Address: [address] [place] [address], [address], [address] Email: [email or web address] Plan Of Care PT-OP-T Assessment and Plan Start: 01/04/22 20:14 Freq: Status: Active Protocol: Document 01/05/22 08:15 AMB (Rec: 01/11/22 11:52 AMB [id number]) Physical Therapy Assessment Rehab Potential Rehabilitation Potential Good Evaluation Complexity Number of Personal Factors/Comorbidities 0 Number of Body Systems Impaired 3 Clinical Presentation at Evaluation Stable Impairments Impairments Activity Tolerance,Pain, Strength Goals Two Impairment prolapse Short Term Goal (STG) Celsa will be able to insert a menstrual cup without pain. STG Duration 5 weeks Alf Goal (LTG) Celsa will report normal bowel movements that do not reproduce rectocele sx. LTG Duration 10 weeks One Impairment pain Short Term Goal (STG) Celsa will engage in the intercourse of her choice without an increase in pain. STG Duration 5 weeks Media Coordinator Goal (LTG) Celsa will be consistent and independent with a HEP for pelvic floor strengthening. LTG Duration 10 weeks Assessment Summary Assessment Celsa reports concern regarding painful intercourse in addition to rectocele sx with constipation. She reports her constipation is now under control with additional fiber, but her grandmother did need to have prolapse surgery and she is concerned about sx worsening with age. She also notes pain /difficulty inserting menstrual cup. She was instructed in pelvic floor strengthening in a gravity assisted position for symptom reduction, as she feels the cervix being low is the reason for the painful intercourse. Her pelvic floor strength was moderate, but considering her symptoms she would benefit from continued education in progressive strengthening. Physical Therapy Plan Frequency and Duration Frequency of Treatment 1x/Week Duration of treatment (weeks) 10 Plan of Care Start Date 01/05/22 Plan of Care End Date 03/16/22 Therapeutic Interventions Therapeutic Interventions Home Exercise Program,Manual Therapy,Neuromuscular Re- education,Self-Care/Home Management,Therapeutic Activities,Therapeutic Exercises Modalities Biofeedback,Electric Stimulation Next Visit Focus/Plan Next Note Type Treatment Note Next Visit Plan Can consider sEMG, follow up on pain with intercourse Plan of Care Dates Plan of Care Start Date 01/05/22 Plan of Care End Date 03/16/22 Electronically Signed by: Alize Hirsch, PT 01/11/22 8434 If you are in agreement with this Plan of Care, please return a signed and dated copy. I have reviewed this Plan of Care and certify that the skilled therapy services above are required to meet the patient?s needs. Physician Signature Date Printed Name and Credentials Clinical Instructor Signature Printed Name and Credentials
--- NOTE | 2022-01-12 08:38 | PT-OP ANOTE ---
No show. Called pt, pt very apologetic, has some sort of cold from her kindergartener and her baby is teething and just completely forgot about her appointment, but also couldn't come because of the illness. Confirmed next appt.
--- NOTE | 2022-02-02 07:54 | PT-IP ANOTE ---
No show-- pt no showed appt, left voicemail.
--- NOTE | 2022-02-21 12:00 | PT.OTN ---
Current Diagnoses Pain in right hip (02/21/22) Rectocele (02/21/22) Deep dyspareunia (02/21/22) Pelvic and perineal pain (02/21/22) Physical Therapy Treatment Note PT-OP-A Visit Information Start: 01/04/22 20:14 Freq: Status: Active Protocol: Document 02/21/22 09:54 AMB (Rec: 02/21/22 11:02 AMB [id number]) Out-Patient Physical Therapy Visit Information Visit Information Visit Type Treatment Note Visit Start Time 09:45 Visit Stop Time 10:30 Total Visit Minutes 45 Visit Number 2 PT-OP-B Current Condition Start: 01/04/22 20:14 Freq: Status: Active Protocol: Document 01/05/22 08:13 AMB (Rec: 01/05/22 09:24 AMB [id number]) Current Condition History of Current Condition Onset Date 08/30/21 Current Complaints rectocele, painful intercourse History of Current Condition Has had two episodes of the rectum bulging into the vagina when contipated since the vaginal of her second son 4 months ago. Reports was not traumatic, only had to push a couple of times. A couple times a week feels like the cervix comes down and this limits the enjoyability of intercourse. Hasn't really enjoyed intercourse since the of her son, does use lots of lubricant because is breast feeding. Personal Factors Other Personal Factors That May Effect Hx of back pain when , Therapy/Recovery currently does have joint pain with exercise, so hasn't been exercising as much, thinks that's because she's about 20# over conception weight. PT-OP-C Subjective Start: 01/04/22 20:14 Freq: Status: Active Protocol: Document 02/21/22 09:54 AMB (Rec: 02/21/22 11:02 AMB [id number]) OP-PT Subjective Patient Comments Patient Comments Has been coughing with illness . Has been doing exercises and finds that as long as she does her exercises and is quite ready for intercourse it is not especially painful. Wants to be rechecked for rectocele today. PT-OP-I Pelvic Floor Start: 01/04/22 20:14 Freq: Status: Active Protocol: Document 01/05/22 12:24 AMB (Rec: 01/05/22 12:42 AMB [id number]) Pelvic Floor Assessment Urine Urinary Symptoms Prolapse,Pain Leaks Per Day 0 Bowel Bowel Symptoms Constipation Other Bowel Symptoms rectocele Prolapse Uterine Prolapse Grade 1 Rectocele Grade 2 Perineal Descent Resting Absent Bearing Present Contraction Ability Voluntary Contraction Moderate Voluntary Relaxation Moderate Manual Muscle Testing Left 3 Manual Muscle Testing Right 3 Manual Muscle Testing Anterior 3 Manual Muscle Testing Posterior 4 Muscle Endurance (Seconds) 10 Number of Quick Contractions In 10 5 Seconds PT-OP-Q Treatments Start: 01/04/22 20:14 Freq: Status: Active Protocol: Document 02/21/22 09:45 AMB (Rec: 02/26/22 10:05 AMB [id number]) Therapeutic Exercises Supine Exercises 1 Supine Exercise Name engage TA and pelvic floor together Comments can use sheet to compress TA gently Sitting Exercises 1 Sitting Exercise Name quick flicks and long holds Comments HEP Self-Care/Home Management Treatment Education Other Education pressure managment with lifting baby, lifting in general PT-OP-T Assessment and Plan Start: 01/04/22 20:14 Freq: Status: Active Protocol: Document 02/21/22 09:54 AMB (Rec: 02/21/22 11:02 AMB [id number]) Physical Therapy Assessment Goals Two Impairment prolapse Short Term Goal (STG) Celsa will be able to insert a menstrual cup without pain. STG Duration 5 weeks Produce Specialist Goal (LTG) Celsa will report normal bowel movements that do not reproduce rectocele sx. LTG Duration 10 weeks One Impairment pain Short Term Goal (STG) Celsa will engage in the intercourse of her choice without an increase in pain. STG Duration 5 weeks Longterm Goal (LTG) Celsa will be consistent and independent with a HEP for pelvic floor strengthening. LTG Duration 10 weeks Assessment Summary Assessment Celsa continues to have rectocele visible upon exam, encouraged to continue to strengthen and manage, also assessed diastasis which is more pronounced above umbilicus than below. Encouraged in ok to add in abdominal exercises as long as also doing pelvic floor contraction and not feeling increased pressure afterwards. Physical Therapy Plan Frequency and Duration Frequency of Treatment 1x/Week Duration of treatment (weeks) 10 Plan of Care Start Date 01/05/22 Plan of Care End Date 03/16/22 Therapeutic Interventions Therapeutic Interventions Home Exercise Program,Manual Therapy,Neuromuscular Re- education,Self-Care/Home Management,Therapeutic Activities,Therapeutic Exercises Modalities Biofeedback,Electric Stimulation Next Visit Focus/Plan Next Note Type Treatment Note Next Visit Plan Can consider sEMG, follow up on pain with intercourse
--- NOTE | 2022-03-21 21:20 | PT.OTN ---
Current Diagnoses Pain in right hip (03/21/22) Rectocele (03/21/22) Deep dyspareunia (03/21/22) Pelvic and perineal pain (03/21/22) Physical Therapy Treatment Note PT-OP-A Visit Information Start: 01/04/22 20:14 Freq: Status: Active Protocol: Document 03/21/22 07:34 AMB (Rec: 03/21/22 07:49 AMB [id number]) Out-Patient Physical Therapy Visit Information Visit Information Visit Type Treatment Note Visit Start Time 09:45 Visit Stop Time 10:30 Total Visit Minutes 45 Visit Number 3 PT-OP-B Current Condition Start: 01/04/22 20:14 Freq: Status: Active Protocol: Document 01/05/22 08:13 AMB (Rec: 01/05/22 09:24 AMB [id number]) Current Condition History of Current Condition Onset Date 08/30/21 Current Complaints rectocele, painful intercourse History of Current Condition Has had two episodes of the rectum bulging into the vagina when contipated since the vaginal of her second son 4 months ago. Reports was not traumatic, only had to push a couple of times. A couple times a week feels like the cervix comes down and this limits the enjoyability of intercourse. Hasn't really enjoyed intercourse since the of her son, does use lots of lubricant because is breast feeding. Personal Factors Other Personal Factors That May Effect Hx of back pain when , Therapy/Recovery currently does have joint pain with exercise, so hasn't been exercising as much, thinks that's because she's about 20# over conception weight. PT-OP-C Subjective Start: 01/04/22 20:14 Freq: Status: Active Protocol: Document 02/21/22 09:54 AMB (Rec: 02/21/22 11:02 AMB [id number]) OP-PT Subjective Patient Comments Patient Comments Has been coughing with illness . Has been doing exercises and finds that as long as she does her exercises and is quite ready for intercourse it is not especially painful. Wants to be rechecked for rectocele today. PT-OP-I Pelvic Floor Start: 01/04/22 20:14 Freq: Status: Active Protocol: Document 01/05/22 12:24 AMB (Rec: 01/05/22 12:42 AMB [id number]) Pelvic Floor Assessment Urine Urinary Symptoms Prolapse,Pain Leaks Per Day 0 Bowel Bowel Symptoms Constipation Other Bowel Symptoms rectocele Prolapse Uterine Prolapse Grade 1 Rectocele Grade 2 Perineal Descent Resting Absent Bearing Present Contraction Ability Voluntary Contraction Moderate Voluntary Relaxation Moderate Manual Muscle Testing Left 3 Manual Muscle Testing Right 3 Manual Muscle Testing Anterior 3 Manual Muscle Testing Posterior 4 Muscle Endurance (Seconds) 10 Number of Quick Contractions In 10 5 Seconds PT-OP-Q Treatments Start: 01/04/22 20:14 Freq: Status: Active Protocol: Document 03/21/22 08:32 AMB (Rec: 03/21/22 08:34 AMB [id number]) Therapeutic Exercises Supine Exercises 1 Supine Exercise Name engage TA and pelvic floor together Comments can use sheet to compress TA gently Sitting Exercises 1 Sitting Exercise Name quick flicks and long holds Comments HEP Self-Care/Home Management Treatment Activities Self-Care/Home Management Activities Managing sx of prolapse, managing foot pain. Inflammation control in general. PT-OP-T Assessment and Plan Start: 01/04/22 20:14 Freq: Status: Active Protocol: Document 03/21/22 07:34 AMB (Rec: 03/21/22 07:49 AMB [id number]) Physical Therapy Assessment Goals Two Impairment prolapse Short Term Goal (STG) Celsa will be able to insert a menstrual cup without pain. STG Duration Discomfort but able to tolerate Intermediate Goal (LTG) Celsa will report normal bowel movements that do not reproduce rectocele sx. LTG Duration MET One Impairment pain Short Term Goal (STG) Celsa will engage in the intercourse of her choice without an increase in pain. STG Duration PARTIALLY MET Student Services Rep Goal (LTG) Celsa will be consistent and independent with a HEP for pelvic floor strengthening. LTG Duration MET Assessment Summary Assessment Celsa is able to insert a menstrual cup and tolerate intercourse about 50% of the time. She continues to have sx of prolapse which is not visible at rest, but is visible with bearing down. Encouraged in positional management and continued strengthening. Pt welcome to return if needed, but is independent with exercises and due to increased healthcare costs in new year elects to be discharged at this time and can always follow up if needed . Physical Therapy Plan Frequency and Duration Frequency of Treatment 1x/Week Duration of treatment (weeks) 1 Plan of Care Start Date 03/21/22 Plan of Care End Date 03/28/22 Therapeutic Interventions Therapeutic Interventions Home Exercise Program,Manual Therapy,Neuromuscular Re- education,Self-Care/Home Management,Therapeutic Activities,Therapeutic Exercises Modalities Biofeedback,Electric Stimulation Discharge Physical Therapy Discharge Reasons Patient Request
--- NOTE | 2022-03-21 21:21 | PT.OPPOC ---
Physical, Occupational & Speech Therapy At [facility] Current Diagnoses Pain in right hip (03/21/22) Rectocele (03/21/22) Deep dyspareunia (03/21/22) Pelvic and perineal pain (03/21/22) Visit Care Team Role Provider Type Mihaela Montgomery CNM Attending Provider Advanced Basting Marker Family Provider Primary Care Provider Referring Provider Specialty: SHOT DROPPER Address: [address] [place] [address], [address], [place], [address] Email: [email or web address] Plan Of Care PT-OP-T Assessment and Plan Start: 01/04/22 20:14 Freq: Status: Active Protocol: Document 03/21/22 07:34 AMB (Rec: 03/21/22 07:49 AMB [id number]) Physical Therapy Assessment Goals Two Impairment prolapse Short Term Goal (STG) Celsa will be able to insert a menstrual cup without pain. STG Duration Discomfort but able to tolerate Air Quality Instrument Specialist Goal (LTG) Celsa will report normal bowel movements that do not reproduce rectocele sx. LTG Duration MET One Impairment pain Short Term Goal (STG) Celsa will engage in the intercourse of her choice without an increase in pain. STG Duration PARTIALLY MET Care Home Goal (LTG) Celsa will be consistent and independent with a HEP for pelvic floor strengthening. LTG Duration MET Assessment Summary Assessment Celsa is able to insert a menstrual cup and tolerate intercourse about 50% of the time. She continues to have sx of prolapse which is not visible at rest, but is visible with bearing down. Encouraged in positional management and continued strengthening. Pt welcome to return if needed, but is independent with exercises and due to increased healthcare costs in new year elects to be discharged at this time and can always follow up if needed . Physical Therapy Plan Frequency and Duration Frequency of Treatment 1x/Week Duration of treatment (weeks) 1 Plan of Care Start Date 03/21/22 Plan of Care End Date 03/28/22 Therapeutic Interventions Therapeutic Interventions Home Exercise Program,Manual Therapy,Neuromuscular Re- education,Self-Care/Home Management,Therapeutic Activities,Therapeutic Exercises Modalities Biofeedback,Electric Stimulation Discharge Physical Therapy Discharge Reasons Patient Request Plan of Care Dates Plan of Care Start Date 03/21/22 Plan of Care End Date 03/28/22 Electronically Signed by: Alize Hirsch, SOREN 03/24/22 [id number] If you are in agreement with this Plan of Care, please return a signed and dated copy. I have reviewed this Plan of Care and certify that the skilled therapy services above are required to meet the patient?s needs. Physician Signature Date Printed Name and Credentials Clinical Instructor Signature Printed Name and Credentials
== END 2022-03-28 15:12 | disposition home or self-care (01) ==
LOC: PHYS 07:30
PROVIDERS: Family Provider Nurse Practitioner Obstetrics & Gynecology; PCP Nurse Practitioner Obstetrics & Gynecology; Referring Provider Nurse Practitioner Obstetrics & Gynecology; Visit Provider Nurse Practitioner Obstetrics & Gynecology
DX: N81.6 Rectocele (principal); R10.2 Pelvic and perineal pain; M25.551 Pain in right hip; N94.12 Deep dyspareunia
CPT/HCPCS: 97110; 97161; 97535

== ENCOUNTER → 2023-01-04 16:26 | Outpatient (CLI) | payer OTHER, SELFPAY | PROVIDERS: Family Provider Nurse Practitioner Obstetrics & Gynecology; PCP Nurse Practitioner Obstetrics & Gynecology; Visit Provider Physician Assistant | DX: J02.9 Acute pharyngitis, unspecified (principal) | CPT/HCPCS: 87070 ==